=== PATIENT | female | born 1990 | race Caucasian/White ===

== ENCOUNTER → 2017-03-06 16:44 | Outpatient (REF) | payer BC, SELFPAY ==
[2017-03-07 18:37] LABS: Erythrocyte Sedimentation Rate 7 mm/hr (0-20)
[2017-03-08 13:23] LABS: C-Reactive Protein < 0.2 mg/L (0.0-0.9)
[2017-03-09 10:17] LABS: Anti-Jo-1 <0.2 AI (0.0-0.9); Anti-Smith Antibody <0.2 AI (0.0-0.9); Antichromatin Antibodies <0.2 AI (0.0-0.9); Antiscleroderma-70 Antibodies <0.2 AI (0.0-0.9); RNP Antibodies <0.2 AI (0.0-0.9); Sjogren's Anti-SS-A <0.2 AI (0.0-0.9); Sjogren's Anti-SS-B <0.2 AI (0.0-0.9)
[2017-03-09 11:11] LABS: Anti-Centromere B Antibodies <0.2 AI (0.0-0.9); Anti-DNA (DS) Ab Qn <1 IU/mL (0-9)
[2017-03-09 15:16] LABS: PTT-LA 32.9 sec (0.0-51.9); dRVVT 41.1 sec (0.0-47.0)
[2017-03-09 18:12] LABS: Lupus Reflex Interpretation Comment: (.)
== END ==
LOC: LAB 16:44
PROVIDERS: Visit Provider Physician Assistant
DX: I99.9 Unspecified disorder of circulatory system (principal); L97.522 Non-pressure chronic ulcer of other part of left foot with fat layer exposed; L81.9 Disorder of pigmentation, unspecified
CPT/HCPCS: 85613; 85651; 86038; 86140; 86141; 87070; 87077; 87186; 87205

== ENCOUNTER 2017-03-07 15:30 | Outpatient (RCR) | payer BC, SELFPAY | END 2017-03-07 15:31 | disposition home or self-care (01) | LOC: PT 15:30 | PROVIDERS: Family Provider Nurse Practitioner Family; PCP Nurse Practitioner Family; Visit Provider Nurse Practitioner Family | DX: L97.509 Non-pressure chronic ulcer of other part of unspecified foot with unspecified severity (principal) | CPT/HCPCS: 97163; 97597 ==

== ENCOUNTER → 2017-03-07 16:35 | Outpatient (CLI) | payer BC, SELFPAY ==
[2017-03-07 16:55] LABS: Basophils % 0.3 % (0.1-2.0); Eosinophils # 0.1 K/mm3 (0.0-0.4); Eosinophils % 0.6 % (0.1-12.0); Hemoglobin 14.2 g/dL (12.2-16.2); Lymphocytes # 2.8 K/mm3 (0.7-4.5); Lymphocytes % 24.3 K/mm3 (10-50); Mean Corpuscular HGB Conc 33.7 g/dL (31.8-35.4); Mean Corpuscular Hemoglobin 30.5 pg (27.0-31.2); Mean Corpuscular Volume 90.5 fl (81-99); Mean Platelet Volume 7.4 fl (7.4-10.4); Monocytes # 0.3 K/mm3 (0.1-1.0); Neutrophils # 8.2 K/mm3 (1.8-7.8); Neutrophils % 71.8 % (37.0-80.0); Platelet Count 247 K/mm3 (142-424); Red Blood Count 4.64 M/mm3 (4.20-5.40); Red Cell Distribution Width 12.8 % (11.5-17.5); White Blood Count 11.4 K/mm3 (4.8-10.8)
[2017-03-09 11:12] LABS: RA Latex Turbid. <10.0 IU/mL (0.0-13.9)
[2017-03-10 19:21] LABS: Anti-Cyclic Citrullinated Pept 11 units (0-19)
== END ==
PROVIDERS: PCP Physician Assistant; Visit Provider Physician Assistant
DX: I99.9 Unspecified disorder of circulatory system (principal); L97.522 Non-pressure chronic ulcer of other part of left foot with fat layer exposed; L81.9 Disorder of pigmentation, unspecified
CPT/HCPCS: 36415; 85025; 86200; 86431

== ENCOUNTER → 2017-03-19 14:09 | Outpatient (REF) | payer BC, SELFPAY | LOC: LAB 14:09 | PROVIDERS: Visit Provider Physician Assistant | DX: Z22.322 Carrier or suspected carrier of Methicillin resistant Staphylococcus aureus (principal) | CPT/HCPCS: 87070; 87077; 87186; 87205 ==

== ENCOUNTER → 2017-03-26 17:42 | Outpatient (REF) | payer BC, SELFPAY | LOC: LAB 17:42 | PROVIDERS: Visit Provider Podiatrist | DX: L98.499 Non-pressure chronic ulcer of skin of other sites with unspecified severity (principal) | CPT/HCPCS: 87070; 87077; 87186; 87205 ==

== ENCOUNTER → 2017-04-02 09:55 | Outpatient (CLI) | payer BC, SELFPAY ==
--- NOTE | 2017-04-02 10:13 | CT_ITS ---
CT angio abdomen/femoral Ordering Physician: ESPERANZA Marie Patient Age: 26 years: Female HISTORY: Both feet discolored brownish left foot has ulcer medial aspect near heel TECHNIQUE: Following bolus administration of 120 cc of Isovue-370 followed x 100 mL normal saline thin section helical CT scanning performed through the abdomen pelvis and continues inferiorly to the legs ankles and to the feet. CTA reconstruction images performed on radiologist workstation. Thick slab mid images as well as 3-D volume rendering images performed. Next CTA and or CPT.... -77 COMPARISON : FINDINGS abdominal aorta is modest caliber but no significant plaque or stenosis. Renal arteries KERRI SMA all visualized and widely patent. The common iliac arteries are widely patent with no significant stenosis or remarkable plaque. Sore the external and internal iliac arteries bilaterally. Both common femoral arteries and superficial femoral arteries appear satisfactory, widely patent with no remarkable plaque or stenosis.. Similar the popliteal arteries and trifurcation vessels appear satisfactory bilaterally. I would again note that there is a rather modest in caliber of vessels throughout the leg including popliteal artery. There is good runoff at the right leg and left leg with visualization of trifurcation vessels down to the ankle. If anything the contrast is slightly may be very slightly more robust on the right leg to the ankle than left. This is equivocal. There is good filling of the dorsalis pedis artery on right and left.. This continues to the dorsal plantar arch which fills very very slightly more optimally I believe on the right than left The posterior tibial artery small but fills bilaterally continuing medial to the calcaneus. At the RIGHT FOOT we can follow the posterior tibial beneath the calcaneus with good contrast throughout the plantar arch. However on the LEFT foot the course of the left posterior tibial artery becomes less evident just medial to the calcaneus and there is only faint, less evident length of the left plantar arch.. This does not appear to reflect timing of the bolus as there actually is generous venous filling which is already occurred on confirming that there has been adequate filling time on left Other observations. Prominent increased stool the large bowel reflecting constipation.. Early contrast images liver is spleen pancreas adrenals and kidneys otherwise unremarkable. Gallbladder unremarkable. IMPRESSION: ====== . [id number]-[id number] popliteal arteries and trifurcation vessels appear satisfactory with no remarkable plaque or stenosis. There is good runoff to the ankle. Note slender, modest caliber of vessels throughout. However LEFT FOOT Inferior to the medial malleolus the posterior tibial artery seems to be attenuated with less contrast. This becomes more pronounced as a follow it distally with decreased filling at the LEFT PLANTAR ARCH, versus right..
--- NOTE | 2017-04-02 12:34 | HMH.ITSHM ---
SUBOXAN BACTRIM DINDAMYCIN ANTIBIOTIC
== END ==
PROVIDERS: Family Provider Nurse Practitioner Family; PCP Physician Assistant; Visit Provider Physician Assistant
DX: L98.499 Non-pressure chronic ulcer of skin of other sites with unspecified severity (principal)
CPT/HCPCS: 75635; Q9967

== ENCOUNTER → 2017-04-16 16:00 | Outpatient (REF) | payer BC, SELFPAY | LOC: LAB 16:00 | PROVIDERS: Visit Provider Podiatrist | DX: L97.509 Non-pressure chronic ulcer of other part of unspecified foot with unspecified severity (principal) | CPT/HCPCS: 87070; 87106; 87205 ==

== ENCOUNTER 2017-04-20 07:20 | Day surgery (SDC) | payer BC, SELFPAY ==
[2017-04-20] VITALS (21 sets, daily range): BP systolic 111–146; BP diastolic 64–94; PULSE 67–126; RESP 16–20; O2SAT 94–100
--- NOTE | 2017-04-20 | IR_ITS ---
DATE OF CATHETERIZATION:04/20/2017 11:47 AM PROCEDURE: 1. Catheter placement in left superficial femoral artery 2. Left superficial femoral artery angiography with unilateral runoff to the foot INDICATION: 1. Peripheral artery disease 2. Intermittent ischemic left foot Abnormal CTA of the left lower extremity Informed consent was obtained prior to the procedure. COMPLICATIONS: None ESTIMATED BLOOD LOSS: Blood loss less than 10 cc. TECHNIQUE:1% lidocaine used to anesthetize the right groin. The right femoral artery was accessed via the Seldinger technique and a 5 Icelandic sheath was placed in the right femoral artery. A rim catheter was used to cannulate the left common iliac artery and an advantage wire was pushed under fluoroscopic guidance into the left superficial femoral artery. A glide catheter was then advanced into the left superficial femoral artery and unilateral runoff was performed. At the end of the procedure the patient was transferred to the postop holding area in stable condition for sheath removal ANGIOGRAPHIC RESULTS: The left superficial femoral artery is free of disease as is the left popliteal artery. The left posterior tibialis artery is ostially occluded or congenitally absent There is 2 vessel runoff below the knee from the anterior tibialis artery and the peroneal artery. The anterior tibialis artery supplies the dorsalis pedis while the peroneal artery supplies the posterior tibialis artery at the level of the ankle. Both vessels are small caliber with very small vascularity distally Impression: Congenitally absent left posterior tibialis artery Patent two-vessel angiography from the peroneal artery and the anterior tibialis artery which adequately supply the foot however both vessels are small and appear vasculopathic especially very distally in the foot. Plan: 1. Patient must discontinue tobacco products. 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 LDL less than 55 3. Physical therapy and risk factor modification
--- NOTE | 2017-04-20 07:28 | CA_ITS ---
PROCEDURE: 2-D M-mode and color Doppler study INDICATIONS FOR THE TEST: Chest pain COPD Heart Murmur Tobacco Smoking+ Palpitations+ Fatigue Syncope Edema+ Hypertension Diabetes Mellitus Rheumatic Fever SOB IBARRA Obesity Hyperlipidemia Family History HD Additional History pad, marfans disease PATIENT INFORMATION HEIGHT: 69 WEIGHT:135 GENDER: Female B/P:115/65 2-D/M-MODE INTERPRETATION: 2-D MEASUREMENTS OBSERVED VALUES IN CMS Right Ventricular Dimension (RVDd) 1.9 Interventricular Septum (Thickness)(IVsd) 0.8 Left Ventricular Internal Dimensions(LVIDd) 3.8 Left Ventricular Posterior Wall (Thickness)(LVPWd) 0.5 Aortic Root 2.7 Aortic Cusp Separation 1.9 Left Atrial Dimensions (LAD) 3.6 2D 1. Left atrium is normal size, left ventricle is normal size, there is no concentric left ventricular hypertrophy, visually estimated ejection fraction 55% with no obvious regional wall motion abnormality. 2. The right atrium and right ventricle are normal size and contractility. 3. The aortic, mitral and tricuspid valve are structurally normal. 4. The pulmonic valve is poorly visualized. 5. No significant pericardial effusion noted. DOPPLER INTERROGATION: Doppler interrogation of the aortic, mitral and tricuspid valvular presence of mild mitral and tricuspid regurgitation, tricuspid and jet velocity insufficient for calculation of the right ventricular systolic pressure. Diastolic parameters are within normal range. CONCLUSION: 1. Normal left ventricular size, preserved left ventricular systolic function, visually estimated ejection fraction 55% with no obvious regional wall motion abnormality, diastolic parameters are within normal range. 2. Mild mitral and tricuspid regurgitation 3. No significant pericardial effusion noted.
[2017-04-20 08:35] LABS: Basophils % 0.5 % (0.1-2.0); Eosinophils # 0.1 K/mm3 (0.0-0.4); Eosinophils % 2.1 % (0.1-12.0); Hematocrit 44.7 % (37.0-47.0); Hemoglobin 14.6 g/dL (12.2-16.2); Lymphocytes # 2.4 K/mm3 (0.7-4.5); Mean Corpuscular HGB Conc 32.6 g/dL (31.8-35.4); Mean Corpuscular Hemoglobin 30.3 pg (27.0-31.2); Mean Corpuscular Volume 92.9 fl (81-99); Mean Platelet Volume 7.9 fl (7.4-10.4); Monocytes # 0.3 K/mm3 (0.1-1.0); Neutrophils # 3.6 K/mm3 (1.8-7.8); Neutrophils % 56.4 % (37.0-80.0); Platelet Count 228 K/mm3 (142-424); Red Cell Distribution Width 13.3 % (11.5-17.5); White Blood Count 6.5 K/mm3 (4.8-10.8)
[2017-04-20 08:40] LABS: Anion Gap 14.5 mEq/L (5-15); Blood Urea Nitrogen 11 mg/dL (7-18); Carbon Dioxide 26 mmol/L (21.0-32.0); Chloride 103 mmol/L (98-107); Creatinine Clearance Estimated 118 mL/min (0-300); Estimated Glomerular Filt Rate 101 ml/min (>60); GFR (African American) 122 ML/MIN (>60); Glucose 97 mg/dL (74-106); Potassium 3.5 mmoL/L (3.5-5.1); Sodium 140 mmol/L (136-145)
[2017-04-20 11:07] LABS: Urine Pregnancy, HCG Qual. Negative (Negative)
== END 2017-04-20 15:46 | disposition home or self-care (01) ==
LOC: CATHLAB 07:23
PROVIDERS: Family Provider Nurse Practitioner Family; PCP Physician Assistant; Visit Provider Internal Medicine
DX: I73.89 Other specified peripheral vascular diseases (principal); Q27.8 Other specified congenital malformations of peripheral vascular system; Z72.0 Tobacco use; I73.1 Thromboangiitis obliterans [Buerger's disease]; L97.522 Non-pressure chronic ulcer of other part of left foot with fat layer exposed; M76.822 Posterior tibial tendinitis, left leg
CPT/HCPCS: 36247; 75710; 80048; 81025; 85025; 93306; 99152; C1725; C1769; C1894; J1644; Q9966

== ENCOUNTER 2017-04-24 14:48 | Emergency (ER) | payer BC, SELFPAY ==
[2017-04-24 15:14] VITALS: BP 126/98; PULSE 101; RESP 18; TEMP 36.8; O2SAT 98; BMI 21.2
--- NOTE | 2017-04-24 15:29 | PC.NURSE ---
pt aware that due to [facility] guidelines, she can not be seen in [place] for post cath complications, 4 days after heart cath. Discussed transfer to ER. Pt declining transfer wanting only piece of mind that site looks ok. GIGI Guillen in Dr. Petersen's office next door, came to clinic, assessed pt and reassured her that she was ok to wait until her appt on with Dr. Petersen because her site looked typical . She rvwd what to watch for and when to call 911 vs. seek treatment. Pt no longer wishes to be seen by a provider, myself or ER MD.
[2017-04-24 15:35] VITALS: BP 0/0; PULSE 0; RESP 0; TEMP -17.7; TEMP 0; O2SAT 0
== END 2017-04-24 15:36 | disposition left against medical advice (07) ==
PROVIDERS: Emergency Provider Nurse Practitioner Family
DX: Z53.29 Procedure and treatment not carried out because of patient's decision for other reasons (principal)
CPT/HCPCS: 99201

== ENCOUNTER → 2017-04-26 13:33 | Outpatient (REF) | payer BC, SELFPAY | LOC: LAB 13:33 | PROVIDERS: Visit Provider Physician Assistant | DX: L97.509 Non-pressure chronic ulcer of other part of unspecified foot with unspecified severity (principal) | CPT/HCPCS: 87070; 87077; 87186; 87205 ==

== ENCOUNTER → 2017-04-30 14:17 | Outpatient (CLI) | payer BC, SELFPAY ==
--- NOTE | 2017-04-30 14:21 | NVE_ITS ---
Venous Exam Indications: 729.81 Swelling of limb. IMPRESSIONS 1. There is no evidence of significant Reflux. 2. No evidence of deep or superficial vein thrombosis involving the right lower extremity History: Risk factors: Current tobacco use. Right lower extremity venous duplex evaluation. Doppler flow study including spectral analysis, color and lai scale imaging. Location: Vascular laboratory. Patient status: Outpatient. Tables: Venous flow and imaging: + +-------+ + Location Overall Flow properties + +-------+ + Right common femoral Patent Normal phasicity; spontaneous; normal augmentation; compressible + +-------+ + Right saphenofemoral junction Patent Compressible + +-------+ + Right profunda femoral Patent Compressible + +-------+ + Right femoral Patent Normal phasicity; spontaneous; normal augmentation; compressible + +-------+ + Right greater saphenous Patent Normal phasicity; spontaneous; normal augmentation; compressible + +-------+ + Right popliteal Patent Normal phasicity; spontaneous; normal augmentation; compressible + +-------+ + Right posterior tibial Patent Compressible + +-------+ + Right peroneal Patent Compressible + +-------+ + Right gastrocnemius Patent Compressible + +-------+ + Right soleal Patent Compressible + +-------+ + (Report amended ) Electronically signed by: Kasi Hunt [id number]
--- NOTE | 2017-04-30 14:46 | AS_ITS ---
Arterial Exam Indications: Perpiheral arterial disease 443.9. IMPRESSIONS Study suggests arterial insufficiency involving the right posterior tibial artery which is absent according to recent angiogram . There is no evidence of an arterial embolism of right lower extremity Right lower extremity arterial duplex. Duplex scan. Location: Vascular laboratory. Patient status: Outpatient. Tables: Arterial flow: + +---------+---------+ Location V sys V ed + +---------+---------+ Right femoral - proximal -57.4cm/s -37.7cm/s + +---------+---------+ Right femoral - mid 87.2cm/s --------- + +---------+---------+ Right femoral - distal -80.9cm/s --------- + +---------+---------+ Right popliteal - proximal 55.8cm/s --------- + +---------+---------+ Right popliteal - distal 47.1cm/s --------- + +---------+---------+ Right posterior tibial - mid 68.4cm/s --------- + +---------+---------+ Right posterior tibial - distal 61.3cm/s --------- + +---------+---------+ [place] and Stress table: +--------+ Stage +--------+ Baseline +--------+ (Report amended ) Electronically signed by: Kasi Hunt [id number]
== END ==
PROVIDERS: PCP Physician Assistant; Visit Provider Internal Medicine
DX: L81.9 Disorder of pigmentation, unspecified (principal); I99.9 Unspecified disorder of circulatory system; L97.522 Non-pressure chronic ulcer of other part of left foot with fat layer exposed; M79.661 Pain in right lower leg; Q87.40 Marfan syndrome, unspecified; F17.200 Nicotine dependence, unspecified, uncomplicated; R00.2 Palpitations; I73.1 Thromboangiitis obliterans [Buerger's disease]
CPT/HCPCS: 93926; 93971

== ENCOUNTER → 2017-05-07 15:03 | Outpatient (POV) | payer BC, SELFPAY | PROVIDERS: Visit Provider Nurse Practitioner Acute Care | DX: Z00.00 Encounter for general adult medical examination without abnormal findings (principal) ==

== ENCOUNTER 2017-05-10 09:08 | Emergency (ER) | payer BC, SELFPAY ==
[2017-05-10 09:23] VITALS: BP 136/82; PULSE 90; RESP 18; TEMP 36.9; O2SAT 100; BMI 19.8
--- NOTE | 2017-05-10 09:58 | XR_ITS ---
XR acute abdomen series COMPARISON: Acute abdominal series 07/30/2013 HISTORY: Abdominal fullness, suspect constipation TECHNIQUE: PA chest KUB and upright abdomen FINDINGS: The lung lai are well expanded and appear clear of infiltrate. The cardiac silhouette and vascularity are normal and is no pleural fluid. Abdominal films show large amount stool throughout the colon. There are few mildly dilated loops of small bowel in the midabdomen. There is no free air. There are no suspicious calcifications. Again noted is mild levoscoliotic curvature of the lower lumbar spine. There is a linear metallic object likely umbilical jewelry seen. IMPRESSION: Negative chest, findings consistent with moderate constipation
--- NOTE | 2017-05-10 10:52 | HMH.EDUTC ---
[facility] [place] Disposition Clinical Impression: Constipation Qualifiers: Constipation type: drug induced constipation Qualified Code(s): K59.03 - Drug induced constipation Disposition: Home, Self-Care Condition on Discharge: Good Instructions: DI for Constipation Additional Instructions: As discussed, drink plenty of water consistent with AT LEAST 67 fluid ounces of water a day. You may take a supplement of fiber and Miralax to induce bowel movement. Follow-up with PCP if no improvement. Go to ED/UTC if symptoms worsen or fever develops with extreme abdominal pain. Referrals: Provider,Referral, [Primary Care Provider] - Time of Disposition: 11:04 Medical Decision Making - [place] Inquiry Pt receiving controlled substance: No Vital Signs: 05/10/17 09:23 Temperature 98.4 F Temperature Source Temporal Artery Scan Pulse Rate [Brachial] 90 Respiratory Rate 18 Blood Pressure [Right Arm] 136/82 Blood Pressure Mean [Right Arm] 100 Blood Pressure Position [Right Arm] Sitting 02 Sat by Pulse Oximetry 100 Oxygen Delivery Method Room Air Orders (Tests/Meds): ORDERS Category Date Time Status Abdomen XR flat & upright [XR acute abdomen series] Exams 05/10/17 09:58 Ordered Stat - Radiology Data #1 Image(s): Abdomen Image Reviewed: Yes I reviewed the patient's radiology image Constipation. No suggestion of obstruction. [facility] [place] HPI - General Stated complaint: Stomach cramping Time Seen by Provider: 05/10/17 10:10 Mode of Arrival: Ambulatory Source of Information: Patient Limitations: No Limitations Description of Symptoms (Recalled from Triage Doc. by RN): PT STATES SHE HAS CHRONIC STOMACH ISSUES AND WAS STARTED ON LAZEST 3 DAYS AGO BUT HAS NOT HELPED WITH CONSTIPATION. CONCERNED SHE HAS A BLOCKAGE. HEENT Symptoms (Recalled from RN notes): No Resp Symptoms (Recalled from RN notes): No Skin Symptoms (Recalled from RN notes): No MS Symptoms (Recalled from RN notes): No Functional Status (Recalled from RN notes): NA - History of Present Illness Provider Complaint: Patient presents with constipation and diffuse abdominal pain. She reports seeing a gastroenterology [employer] D[employer]AL MEDICINE who prescribed her Linzess for constipation. She has taken three days of Linzess and has had increased abdominal cramping radiating to her back without having a bowel movement. She is concerned she might have a bowel blockage. She denies fevers, nausea, dysuria, and vomiting. - Related Data Home Medications Medication Instructions Recorded Confirmed buprenorphine 8 mg-naloxone 2 mg 10 mg SUBLINGUAL QDAY mg 02/21/17 04/24/17 sublingual film ibuprofen 200 mg tablet 200 mg PO Q4-6H PRN 04/10/17 04/24/17 aspirin 81 mg tablet,delayed 81 mg PO DAILY tab 04/30/17 release fluconazole 150 mg tablet PO 2 Days #2 05/03/17 Previous Rx's Medication Instructions Recorded sulfamethoxazole 800 1 tab PO BID #28 tab 04/30/17 mg-trimethoprim 160 mg tablet Allergies Allergy/AdvReac Type Severity Reaction Status Date / Time Iodinated Contrast Media - Allergy Intermediate NA-NAUSEA/V Verified 05/03/17 11:49 Oral and OMITING [IODINATED CONTRAST MEDIA - IV DYE] levofloxacin [From LEVAQUIN] Allergy Mild Verified 05/03/17 11:49 ondansetron Allergy Unknown Verified 05/03/17 11:49 [From ZOFRAN ( HYDROCHLORIDE)] - Worker's Comp Is this a Worker's Comp case?: No [facility] History I have reviewed the patient's past medical history: Yes Medical History: Reports:: MRSA Denies:: Anxiety, Asthma, Cancer, Chronic Obstructive Pulmonary Disease (COPD), Depression, Diabetes Mellitus Type 1, Diabetes Mellitus Type 2, Gastroesophageal Reflux Disease(GERD), Hyperlipidemia, Hypertension, Kidney Stones, Seizures Other Medical History: Reports: Sinus Problems. Denies: Hypothyroidism, Thyroid Disease Comment: Shingles Other Surgeries: Yes: No Previous Surgery, Cardiac Catheterization, Hernia Repair Amputation: No
--- NOTE | 2017-05-10 10:55 | ED_ITS ---
[facility] [place] Clinical Impression: Constipation Qualifiers: Constipation type: drug induced constipation Qualified Code(s): K59.03 - Drug induced constipation Disposition: Home, Self-Care Condition on Discharge: Good Instructions: DI for Constipation Additional Instructions: As discussed, drink plenty of water consistent with AT LEAST 67 fluid ounces of water a day. You may take a supplement of fiber and Miralax to induce bowel movement. Follow-up with PCP if no improvement. Go to ED/UTC if symptoms worsen or fever develops with extreme abdominal pain. Referrals: Provider,Referral, [Primary Care Provider] - Time of Disposition: 11:04 Medical Decision Making - [place] Inquiry Pt receiving controlled substance: No Vital Signs: 05/10/17 09:23 Temperature 98.4 F Temperature Source Temporal Artery Scan Pulse Rate [Brachial] 90 Respiratory Rate 18 Blood Pressure [Right Arm] 136/82 Blood Pressure Mean [Right Arm] 100 Blood Pressure Position [Right Arm] Sitting 02 Sat by Pulse Oximetry 100 Oxygen Delivery Method Room Air Orders (Tests/Meds): ORDERS Category Date Time Status Abdomen XR flat & upright [XR acute abdomen series] Exams 05/10/17 09:58 Ordered Stat - Radiology Data #1 Image(s): Abdomen Image Reviewed: Yes I reviewed the patient's radiology image Constipation. No suggestion of obstruction. [facility] [place] - General Stated complaint: Stomach cramping Time Seen by Provider: 05/10/17 10:10 Mode of Arrival: Ambulatory Source of Information: Patient Limitations: No Limitations Description of Symptoms (Recalled from Triage Doc. by RN): PT STATES SHE HAS CHRONIC STOMACH ISSUES AND WAS STARTED ON LAZEST 3 DAYS AGO BUT HAS NOT HELPED WITH CONSTIPATION. CONCERNED SHE HAS A BLOCKAGE. HEENT Symptoms (Recalled from RN notes): No Resp Symptoms (Recalled from RN notes): No Skin Symptoms (Recalled from RN notes): No MS Symptoms (Recalled from RN notes): No Functional Status (Recalled from RN notes): NA - History of Present Illness Provider Complaint: Patient presents with constipation and diffuse abdominal pain. She reports seeing a gastroenterology [employer] who prescribed her Linzess for constipation. She has taken three days of Linzess and has had increased abdominal cramping radiating to her back without having a bowel movement. She is concerned she might have a bowel blockage. She denies fevers, nausea, dysuria , and vomiting. - Related Data Home Medications Medication Instructions Recorded Confirmed buprenorphine 8 mg-naloxone 2 mg 10 mg SUBLINGUAL QDAY mg 02/21/17 04/24/17 sublingual film ibuprofen 200 mg tablet 200 mg PO Q4-6H PRN 04/10/17 04/24/17 aspirin 81 mg tablet,delayed 81 mg PO DAILY tab 04/30/17 release fluconazole 150 mg tablet PO 2 Days #2 05/03/17 Previous Rx's Medication Instructions Recorded sulfamethoxazole 800 1 tab PO BID #28 tab 04/30/17 mg-trimethoprim 160 mg tablet Allergies Allergy/AdvReac Type Severity Reaction Status Date / Time Iodinated Contrast Media - Allergy Intermediate NA-NAUSEA/V Verified 05/03/17 11 :49 Oral and OMITING [IODINATED CONTRAST MEDIA - IV DYE] levofloxacin [From LEVAQUIN] Allergy Mild Verified 05/03/17 11:49 o
[2017-05-10 11:07] VITALS: BP 136/82; PULSE 90; RESP 18; TEMP 36.9; O2SAT 100
== END 2017-05-10 11:10 | disposition home or self-care (01) ==
PROVIDERS: Emergency Provider Physician Assistant; Family Provider Nurse Practitioner Family
DX: K59.03 Drug induced constipation (principal); F17.210 Nicotine dependence, cigarettes, uncomplicated; Z88.8 Allergy status to other drugs, medicaments and biological substances; Z79.82 Long term (current) use of aspirin
CPT/HCPCS: 74021; 99201

== ENCOUNTER → 2017-05-14 07:05 | Outpatient (CLI) | payer BC, SELFPAY ==
[2017-05-14 07:21] LABS: Basophils % 0.6 % (0.1-2.0); Eosinophils # 0.1 K/mm3 (0.0-0.4); Hematocrit 41.4 % (37.0-47.0); Hemoglobin 13.7 g/dL (12.2-16.2); Lymphocytes # 3.2 K/mm3 (0.7-4.5); Lymphocytes % 53.3 K/mm3 (10-50); Mean Corpuscular Hemoglobin 30.8 pg (27.0-31.2); Mean Corpuscular Volume 93.3 fl (81-99); Mean Platelet Volume 8.5 fl (7.4-10.4); Monocytes # 0.2 K/mm3 (0.1-1.0); Monocytes % 3.9 % (1.7-9.3); Neutrophils # 2.4 K/mm3 (1.8-7.8); Neutrophils % 40.2 % (37.0-80.0); Platelet Count 213 K/mm3 (142-424); Red Blood Count 4.44 M/mm3 (4.20-5.40); Red Cell Distribution Width 12.7 % (11.5-17.5); White Blood Count 6.1 K/mm3 (4.8-10.8)
[2017-05-14 07:24] LABS: MANUAL DIFFERENTIAL MANUAL DIFFERENTIAL (MANUAL DIFF)
[2017-05-14 07:41] LABS: Alanine Aminotransferase 20 U/L (12-78); Alkaline Phosphatase 63 U/L (46-116); Anion Gap 13.7 mEq/L (5-15); Aspartate Amino Transferase 22 U/L (15-37); Bilirubin,Total 0.2 mg/dL (0.2-1.0); Blood Urea Nitrogen 7 mg/dL (7-18); Carbon Dioxide 27 mmol/L (21.0-32.0); Chloride 103 mmol/L (98-107); Chol/HDL Ratio 4.7 (1-3.5); Cholesterol 132 mg/dL (140-200); Creatinine,Serum 0.91 mg/dL (0.55-1.02); Estimated Glomerular Filt Rate 74 ml/min (>60); GFR (African American) 90 ML/MIN (>60); Glucose 92 mg/dL (74-106); HDL Cholesterol 28 mg/dL (29-89); LDL Cholesterol 87 mg/dL (0-130); Potassium 3.7 mmoL/L (3.5-5.1); Sodium 140 mmol/L (136-145); Total Protein,Serum 7.4 gm/dL (6.4-8.2); Triglycerides 85 mg/dL (30-200); VLDL Cholesterol 17 mg/dL (0-40)
[2017-05-14 07:43] LABS: Bilirubin,Direct < 0.1 mg/dL (0.0-0.2)
[2017-05-14 07:48] LABS: Lymphocytes % 57 % (10-50); Monocytes % 7 % (2-9); Neutrophils % 32 % (42-76); Platelet Estimate Normal; RBC Morphology Normal; Total Cells Counted 100
[2017-05-14 08:15] LABS: Erythrocyte Sedimentation Rate 10 mm/hr (0-20)
== END ==
PROVIDERS: Visit Provider Internal Medicine
DX: Q87.40 Marfan syndrome, unspecified (principal); I77.6 Arteritis, unspecified; I73.1 Thromboangiitis obliterans [Buerger's disease]; L97.522 Non-pressure chronic ulcer of other part of left foot with fat layer exposed; I73.9 Peripheral vascular disease, unspecified; R00.0 Tachycardia, unspecified; I99.9 Unspecified disorder of circulatory system; R93.5 Abnormal findings on diagnostic imaging of other abdominal regions, including retroperitoneum; L81.9 Disorder of pigmentation, unspecified; F17.200 Nicotine dependence, unspecified, uncomplicated; R00.2 Palpitations
CPT/HCPCS: 36415; 80048; 80061; 80076; 85007; 85025; 85651; 86141

== ENCOUNTER → 2017-05-22 09:46 | Outpatient (REF) | payer BC, SELFPAY | LOC: LAB 09:46 | PROVIDERS: Visit Provider Physician Assistant | DX: S91.002A Unspecified open wound, left ankle, initial encounter (principal) | CPT/HCPCS: 87070; 87077; 87186; 87205 ==

== ENCOUNTER → 2017-05-31 13:51 | Outpatient (CLI) | payer BC, SELFPAY ==
--- NOTE | 2017-05-31 13:51 | MR_ITS ---
MR foot LT wo/w con CLINICAL INDICATION: Nonhealing wound of the left foot, pes planus ITS.REASON: Non healing ulcer, posterior tibial tendon dysfunction with pes planus. PTTD, ulcer medial side of left foot and ankle, foot pain, joint pain ORDERING PHYSICIAN: Katlin Medina DPM PATIENT AGE: 27 years COMPARISON: 05/01/2016 TECHNIQUE: Routine multiplanar multiecho sequences are performed without and with contrast FINDINGS: The tibialis posterior tendon is thinned but does not appear torn with insertion distally upon the navicular and medial cuneiform. There is moderate pes planus with slight increased T2 signal of the anterior aspect of the calcaneus as well as the talus. There is moderate pes planus with inferior angulation of the distal aspect of the navicular. No abnormal bone marrow enhancement that would suggest osteomyelitis. The fibers of the deltoid ligament are thinned but do not appear torn. There is valgus angulation of the calcaneus. There is hallux valgus with increased T2 signal of the distal aspect of the first metatarsal. This is nonspecific and could be inflammatory or infectious. IMPRESSION: 1. Pes planus. No evidence of posterior tibialis tendon tear 2. Mild bone marrow edema of the talus and the anterior aspect of the calcaneus. Etiology indeterminate. 3. No evidence of osteomyelitis of the ankle. 4. Focal increased T2 signal with questionable small amount of enhancement at the distal first metatarsal medially nonspecific with hallux valgus. This could be a result of the hallux valgus with osteoarthritic change. Infection cannot be excluded based on these images..
== END ==
PROVIDERS: Family Provider Nurse Practitioner Family; PCP Physician Assistant; Visit Provider Podiatrist
DX: M76.822 Posterior tibial tendinitis, left leg (principal); Z51.89 Encounter for other specified aftercare
CPT/HCPCS: 73720; A9576

== ENCOUNTER → 2017-06-01 14:51 | Outpatient (REF) | payer BC, SELFPAY | LOC: LAB 14:51 | PROVIDERS: Visit Provider Podiatrist | DX: L97.322 Non-pressure chronic ulcer of left ankle with fat layer exposed (principal) | CPT/HCPCS: 87070; 87205 ==

== ENCOUNTER → 2017-06-19 07:07 | Outpatient (CLI) | payer BC, SELFPAY ==
--- NOTE | 2017-06-19 07:08 | NM_ITS ---
NM IN-111 wbc scan Ordering Physician: Katlin Medina DPM Patient Age: 27 years: Female HISTORY: ITS.REASON: osteomyelitis vs. avascular necrosis medial left ankle Abnormal signal at the medial talus on recent MR TECHNIQUE: Indium the WBC labeled scan 06/19/2017 with imaging at 4 hours, 24 hours, and 48 hours following injection. Also Repeat Tc WBC labeled scan repeated on July 09, (2 hour delayed imaging July 09 & 24-hour delayed imaging on July 10.) COMPARISON : MRI left foot 05/31/2017.... Plain films left foot 05/01/2016 FINDINGS Recent MRI showed increased bone signal at medial aspect of slight medially directed distal talus as well increased bone signal at the distal calcaneus, about the angle Gissane. It was unclear on MR if if we reviewing reactive bone changes versus AVN versus osteomyelitis on that prior MR and thus and thus the WBC labeled scans performed to evaluate for infection. The patient initially received WBC labeled indium scan performed 06/19/2017 with imaging performed at 4 hours, 24 hours, and 48 hours following injection.. With the repeatTc WBC labeled scan repeated on July 09, (with imaging at 2 hr & 24 hour). On initial Indium WBC study there is some initial mislabeling of images by technologist. However after lengthy discussion with this technologist JGthe final images which are now in PACS I have been corrected, & findings concur with today's repeat Tc WBC labeled images. On the both the 2 studies(indium and Tc labeled WBC) we see a minimal slight increased activity proximal left foot, medial slightly more so than lateral. These areas of increased activity corresponding with areas of increased bone signal recent prior MR. Specifically the most notable of minimal, increased activity is at medial proximal foot towards ankle, compared to the right foot. This is most notable the region medially directed distal talus which is a area of increased signal on recent bone scan... I'm surprised activity is not greater more intense and more focal to better confirm osteomyelitis but could reflect chronic low-grade nature of such. The subtle increased medial activity also noted to extend slightly distal along medial proximal foot on posterior view particularly on theonTC WBC scan. There is also slight subtle increased activity seen at the lateral foot left versus right, which likely corresponds with increased activity about the lateral subtalar joint region (prior MR showed increased bone signal both sides of the angle of gissane here at the lateral foot,)). . Right foot appears WNL. With this there is Less, & possibly subtle relative diminished activity at the proximal right foot & ankle in these same regions noted above This Study was initially monitored & reviewed by Dr. Hunt and we have discussed this case with him as well.. IMPRESSION 1. Minimal increased activity at the proximal left foot versus right foot.. Medial> lateral Specifically most notable minimal area increased activity does seem to correlate with the medially aspect of the medially directed distal talus., Here at the medial proximal foot. There is also subtle vague regional activity at lateral subtalar joint which correlates with increased MR signal about the angle of Gissne. (These minimal findings are evident on both the initial indium-111 study with correct labeling; as well as the repeat Tc WBC labeled scan)
== END ==
PROVIDERS: Family Provider Nurse Practitioner Family; PCP Physician Assistant; Visit Provider Podiatrist
DX: L97.522 Non-pressure chronic ulcer of other part of left foot with fat layer exposed (principal)
CPT/HCPCS: 78806

== ENCOUNTER → 2017-06-20 12:16 | Outpatient (CLI) | payer BC, SELFPAY | PROVIDERS: PCP Physician Assistant; Visit Provider Podiatrist | DX: L97.522 Non-pressure chronic ulcer of other part of left foot with fat layer exposed (principal) ==

== ENCOUNTER → 2017-06-21 11:30 | Outpatient (CLI) | payer BC, SELFPAY | PROVIDERS: PCP Physician Assistant; Visit Provider Podiatrist | DX: L97.522 Non-pressure chronic ulcer of other part of left foot with fat layer exposed (principal) ==

== ENCOUNTER → 2017-06-26 15:06 | Outpatient (CLI) | payer BC, SELFPAY ==
[2017-06-26 15:27] LABS: Basophils % 0.3 % (0.1-2.0); Eosinophils # 0.1 K/mm3 (0.0-0.4); Eosinophils % 1.2 % (0.1-12.0); Hematocrit 37.8 % (37.0-47.0); Hemoglobin 12.8 g/dL (12.2-16.2); Mean Corpuscular HGB Conc 33.9 g/dL (31.8-35.4); Mean Corpuscular Hemoglobin 30.5 pg (27.0-31.2); Mean Corpuscular Volume 90.1 fl (81-99); Mean Platelet Volume 8.8 fl (7.4-10.4); Monocytes # 0.2 K/mm3 (0.1-1.0); Monocytes % 3.3 % (1.7-9.3); Neutrophils # 3.9 K/mm3 (1.8-7.8); Neutrophils % 54.1 % (37.0-80.0); Platelet Count 209 K/mm3 (142-424); Red Cell Distribution Width 12.3 % (11.5-17.5); White Blood Count 7.3 K/mm3 (4.8-10.8)
[2017-06-26 16:17] LABS: Erythrocyte Sedimentation Rate 8 mm/hr (0-20)
[2017-06-26 17:37] LABS: Alanine Aminotransferase 17 U/L (12-78); Albumin Level 4.5 gm/dL (3.4-5.0); Albumin/Globulin Ratio 1.7 (1.1-1.8); Alkaline Phosphatase 47 U/L (46-116); Anion Gap 15.6 mEq/L (5-15); Aspartate Amino Transferase 17 U/L (15-37); Bilirubin,Total 0.5 mg/dL (0.2-1.0); Blood Urea Nitrogen 12 mg/dL (7-18); Calcium 9.6 mg/dL (8.5-10.1); Carbon Dioxide 25 mmol/L (21.0-32.0); Chloride 103 mmol/L (98-107); Estimated Glomerular Filt Rate 120 ml/min (>60); GFR (African American) 145 ML/MIN (>60); Globulin 2.7 gm/dl (1.3-3.2); Glucose 100 mg/dL (74-106); Potassium 3.6 mmoL/L (3.5-5.1); Sodium 140 mmol/L (136-145); Total Protein,Serum 7.2 gm/dL (6.4-8.2)
[2017-06-26 17:38] LABS: C-Reactive Protein < 0.2 mg/L (0.0-0.9)
[2017-06-28 21:15] LABS: Vitamin D 25 Hydroxy 56.6 ng/mL (30.0-100.0)
== END ==
PROVIDERS: Visit Provider Podiatrist
DX: L97.322 Non-pressure chronic ulcer of left ankle with fat layer exposed (principal)
CPT/HCPCS: 36415; 80053; 80323; 82652; 85025; 85651; 86140; G0480

== ENCOUNTER → 2017-07-05 07:02 | Outpatient (CLI) | payer BC, SELFPAY | PROVIDERS: Family Provider Nurse Practitioner Family; PCP Physician Assistant; Visit Provider Podiatrist | DX: L97.509 Non-pressure chronic ulcer of other part of unspecified foot with unspecified severity (principal) ==

== ENCOUNTER → 2017-07-09 07:07 | Outpatient (CLI) | payer BC, SELFPAY | PROVIDERS: Family Provider Nurse Practitioner Family; PCP Physician Assistant; Visit Provider Podiatrist | DX: M79.672 Pain in left foot (principal); M86.172 Other acute osteomyelitis, left ankle and foot ==

== ENCOUNTER → 2017-07-10 13:33 | Outpatient (CLI) | payer BC, SELFPAY | PROVIDERS: PCP Physician Assistant; Visit Provider Podiatrist | DX: M86.9 Osteomyelitis, unspecified (principal); M79.672 Pain in left foot; L97.522 Non-pressure chronic ulcer of other part of left foot with fat layer exposed; I73.1 Thromboangiitis obliterans [Buerger's disease]; F17.200 Nicotine dependence, unspecified, uncomplicated ==

== ENCOUNTER → 2017-07-23 14:20 | Outpatient (POV) | payer BC, SELFPAY | PROVIDERS: Visit Provider Nurse Practitioner Acute Care | DX: Z00.00 Encounter for general adult medical examination without abnormal findings (principal) ==

== ENCOUNTER → 2017-09-27 14:46 | Outpatient (CLI) | payer MEDICARE, BC, SELFPAY ==
[2017-09-27 15:14] LABS: Microscopic, Urine URINE MICROSCOPIC (MICROSCOPIC)
[2017-09-27 15:44] LABS: Creatinine,Urine Random 260 mg/dL (20-320); Total Protein,Urine Random 27.4 mg/dL (0.0-11.9)
[2017-09-27 15:52] LABS: Appearance,Urine CLEAR (Clear); Bilirubin,Urine Negative (Negative); Blood, Urine Negative (Negative); Color,Urine YELLOW (Yellow); Glucose,Urine (UA) Negative (Negative); Ketones,Urine Negative (Negative); Leukocyte Esterase,Urine Negative (Negative); Nitrate,Urine Negative (Negative); PH,Urine 5.5 (5.0-8.5); Protein,Urine Negative (Negative); Specific Gravity, Urine >= 1.030 (1.005-1.030); Urobilinogen,Urine 0.2 EU/dl (0.2)
[2017-09-27 16:12] LABS: Bacteria,Urine 1+ /lpf; Squamous Epithelial Cell,Urine 20-50 #/hpf (0-5)
[2017-09-27 16:18] LABS: Basophils % 0.3 % (0.1-2.0); Eosinophils # 0.4 K/mm3 (0.0-0.4); Eosinophils % 4.4 % (0.1-12.0); Hemoglobin 13.6 g/dL (12.2-16.2); Lymphocytes # 2.9 K/mm3 (0.7-4.5); Lymphocytes % 36.5 K/mm3 (10-50); Mean Corpuscular HGB Conc 33.1 g/dL (31.8-35.4); Mean Corpuscular Hemoglobin 30.3 pg (27.0-31.2); Mean Corpuscular Volume 91.7 fl (81-99); Mean Platelet Volume 8.3 fl (7.4-10.4); Monocytes # 0.4 K/mm3 (0.1-1.0); Monocytes % 4.4 % (1.7-9.3); Neutrophils # 4.3 K/mm3 (1.8-7.8); Neutrophils % 54.4 % (37.0-80.0); Platelet Count 202 K/mm3 (142-424); Red Blood Count 4.48 M/mm3 (4.20-5.40); Red Cell Distribution Width 12.3 % (11.5-17.5); White Blood Count 7.9 K/mm3 (4.8-10.8)
[2017-09-27 16:53] LABS: Alanine Aminotransferase 20 U/L (12-78); Albumin Level 4.6 gm/dL (3.4-5.0); Albumin/Globulin Ratio 1.7 (1.1-1.8); Alkaline Phosphatase 54 U/L (46-116); Anion Gap 11.5 mEq/L (5-15); Aspartate Amino Transferase 17 U/L (15-37); Bilirubin,Total 0.5 mg/dL (0.2-1.0); Blood Urea Nitrogen 13 mg/dL (7-18); Calcium 9.1 mg/dL (8.5-10.1); Carbon Dioxide 28 mmol/L (21.0-32.0); Chloride 103 mmol/L (98-107); Creatine Kinase 107 U/L (26-192); Estimated Glomerular Filt Rate 100 ml/min (>60); GFR (African American) 121 ML/MIN (>60); Globulin 2.7 gm/dl (1.3-3.2); Glucose 85 mg/dL (74-106); Potassium 3.5 mmoL/L (3.5-5.1); Sodium 139 mmol/L (136-145); Total Protein,Serum 7.3 gm/dL (6.4-8.2)
[2017-09-27 16:57] LABS: C-Reactive Protein < 0.2 mg/L (0.0-0.9)
[2017-09-27 17:08] LABS: Erythrocyte Sedimentation Rate 6 mm/hr (0-20)
[2017-09-29 08:19] LABS: Complement C3 126 mg/dL (82-167); Immunoglobulin A, Qn 123 mg/dL (87-352); Immunoglobulin G, Qn 786 mg/dL (700-1600); Immunoglobulin M, Qn 45 mg/dL (26-217); RA Latex Turbid. <10.0 IU/mL (0.0-13.9)
[2017-09-29 10:12] LABS: Hep A Ab, IgM Negative (Negative); Hepatitis B Core Antibody IgM Negative (Negative); Hepatitis B Surface Antigen Negative (Negative)
[2017-09-30 16:09] LABS: PTT-LA 37.9 sec (0.0-51.9)
[2017-10-01 12:54] LABS: HIV Screen 4th Generation wRfx Non Reactive (Non Reactive); Hepatitis C Antibody <0.1 s/co ratio (0.0-0.9); Rapid Plasma Reagin Ab Titer Non Reactive (NonRea<1:1)
[2017-10-01 12:56] LABS: Lupus Reflex Interpretation Comment: (.)
[2017-10-01 12:57] LABS: Antinuclear Antibodies, IFA Negative (.)
[2017-10-01 15:19] LABS: Antiscleroderma-70 Antibodies <0.2 AI (0.0-0.9); Cytoplasmic (C-ANCA) <1:20 titer (Neg:<1:20); RNP Antibodies <0.2 AI (0.0-0.9); Sjogren's Anti-SS-A <0.2 AI (0.0-0.9); Sjogren's Anti-SS-B <0.2 AI (0.0-0.9)
[2017-10-01 16:18] LABS: Albumin 4.7 g/dL (2.9-4.4); Alpha-1-Globulin 0.3 g/dL (0.0-0.4); Alpha-2-Globulin 0.7 g/dL (0.4-1.0); Angiotensin Converting Enzyme 41 U/L (14-82); Gamma Globulin 0.7 g/dL (0.4-1.8); Protein, Total 7.3 g/dL (6.0-8.5)
[2017-10-02 15:37] LABS: Albumin, U 26.6 % (.); Alpha-1-Globulin, U 2.6 % (.); Alpha-2-Globulin, U 19.8 % (.); Beta Globulin, U 35.9 % (.); Gamma Globulin, U 15.1 % (.); M-Spike, % Not Observed % (Not Observed); Protein,Total,Urine 29.4 mg/dL (Not Estab.)
[2017-10-03 08:44] LABS: Aldolase 3.7 U/L (3.3-10.3); Anti-Cardio Antibody IgM <9 MPL U/mL (0-12); Anti-Cardiolipin Antibody IgG <9 GPL U/mL (0-14); Anti-Cyclic Citrullinated Pept 11 units (0-19); Anti-DNA (DS) Ab Qn <1 IU/mL (0-9); Anti-Jo-1 <0.2 AI (0.0-0.9); Anticardiolipin Ab,IgA,Qn <9 APL U/mL (0-11); Perinuclear (P-ANCA) <1:20 titer (Neg:<1:20)
[2017-10-03 14:48] LABS: Beta-2 Glycoprotein I Ab, IgA <9 (0-25); Beta-2 Glycoprotein I Ab, IgG <9 (0-20); Beta-2 Glycoprotein I Ab, IgM <9 (0-32)
== END ==
PROVIDERS: PCP Physician Assistant; Visit Provider Internal Medicine
DX: I99.9 Unspecified disorder of circulatory system (principal); Z11.4 Encounter for screening for human immunodeficiency virus [HIV]
CPT/HCPCS: 36415; 80053; 80074; 81001; 82085; 82164; 82550; 82570; 82652; 82784; 83520; 84155; 84156; 84165; 84166; 85025; 85613; 85651; 86038; 86140; 86146; 86147; 86161; 86200; 86225; 86235; 86256; 86431; 86480; 86592; 86703; G0432

== ENCOUNTER → 2017-10-26 14:57 | Outpatient (CLI) | payer BC, SELFPAY | PROVIDERS: Family Provider Nurse Practitioner Family; PCP Physician Assistant; Visit Provider Internal Medicine | DX: L97.309 Non-pressure chronic ulcer of unspecified ankle with unspecified severity (principal); I99.9 Unspecified disorder of circulatory system ==

== ENCOUNTER → 2017-11-06 16:03 | Outpatient (CLI) | payer MEDICARE, BC, SELFPAY ==
--- NOTE | 2017-11-06 16:04 | XR_ITS ---
XR foot RT min 3V HISTORY: ITS.REASON: right foot pain ORDERING PHYSICIAN: Jaime Brewer MD PATIENT AGE: 27 years COMPARISON: None FINDINGS: There is minimal hallux valgus No fracture or dislocation. No lytic or blastic change. There is normal mineralization.. The joint spaces are well-preserved. No significant degenerative/arthritic changes. No erosive changes evident. IMPRESSION: Minimal hallux valgus otherwise negative right foot
== END ==
PROVIDERS: PCP Nurse Practitioner Family; Visit Provider Orthopaedic Surgery
DX: M79.671 Pain in right foot (principal)
CPT/HCPCS: 73630

== ENCOUNTER → 2017-12-18 15:13 | Outpatient (CLI) | payer MEDICARE, BC, SELFPAY ==
--- NOTE | 2017-12-18 15:16 | NVE_ITS ---
Venous Exam Indications: 729.5 Pain in limb. IMPRESSIONS 1. There is no evidence of significant Reflux. 2. No evidence of deep or superficial vein thrombosis involving the left lower extremity Difficult exam vessels very smallmaking it difficult to image Left lower extremity venous duplex evaluation. Doppler flow study including spectral analysis, color and lai scale imaging. Location: Vascular laboratory. Patient status: Outpatient. CRITICAL FINDINGS - Reported to: Kellen Cunha - Read back and verified. - 12/18/16 - 1540 - None Tables: Venous flow and imaging: + +-------+ + Location Overall Flow properties + +-------+ + Left common femoral Patent Normal phasicity; spontaneous; normal augmentation; compressible + +-------+ + Left saphenofemoral junction Patent Compressible + +-------+ + Left profunda femoral Patent Compressible + +-------+ + Left femoral Patent Normal phasicity; spontaneous; normal augmentation; compressible + +-------+ + Left greater saphenous Patent Normal phasicity; spontaneous; normal augmentation; compressible + +-------+ + Left popliteal Patent Normal phasicity; spontaneous; normal augmentation; compressible + +-------+ + Left posterior tibial Patent Compressible + +-------+ + Left peroneal Patent Compressible + +-------+ + Left gastrocnemius Patent Compressible + +-------+ + Left soleal Patent Compressible + +-------+ + (Report amended ) Electronically signed by: Kasi Hunt [id number]
== END ==
PROVIDERS: PCP Nurse Practitioner Family; Visit Provider Nurse Practitioner Family
DX: M79.605 Pain in left leg (principal)
CPT/HCPCS: 93971

== ENCOUNTER → 2018-06-12 14:14 | Outpatient (CLI) | payer MEDICARE, MEDICAID, SELFPAY ==
[2018-06-12 15:26] LABS: Basophils % 0.3 % (0.1-2.0); Eosinophils # 0.1 K/mm3 (0.0-0.4); Eosinophils % 1.5 % (0.1-12.0); Hematocrit 40.2 % (37.0-47.0); Hemoglobin 13.4 g/dL (12.2-16.2); Lymphocytes # 3.2 K/mm3 (0.7-4.5); Lymphocytes % 39.8 % (10-50); Mean Corpuscular HGB Conc 33.3 g/dL (31.8-35.4); Mean Corpuscular Hemoglobin 30.4 pg (27.0-31.2); Mean Corpuscular Volume 91.4 fl (81-99); Mean Platelet Volume 7.9 fl (7.4-10.4); Monocytes # 0.3 K/mm3 (0.1-1.0); Monocytes % 4.1 % (1.7-9.3); Neutrophils # 4.3 K/mm3 (1.8-7.8); Neutrophils % 54.3 % (37.0-80.0); Platelet Count 219 K/mm3 (142-424); Red Cell Distribution Width 12.5 % (11.5-17.5); White Blood Count 7.9 K/mm3 (4.8-10.8)
[2018-06-12 16:37] LABS: Alanine Aminotransferase 24 U/L (12-78); Albumin Level 4.4 gm/dL (3.4-5.0); Albumin/Globulin Ratio 1.5 (1.1-1.8); Alkaline Phosphatase 63 U/L (46-116); Anion Gap 12.6 mEq/L (5-15); Aspartate Amino Transferase 15 U/L (15-37); Bilirubin,Total 0.4 mg/dL (0.2-1.0); Blood Urea Nitrogen 11 mg/dL (7-18); Carbon Dioxide 27 mmol/L (21.0-32.0); Chloride 103 mmol/L (98-107); Creatinine,Serum 0.54 mg/dL (0.55-1.02); Estimated Glomerular Filt Rate 134 ml/min (>60); GFR (African American) 163 ML/MIN (>60); Glucose 84 mg/dL (74-106); Potassium 3.6 mmoL/L (3.5-5.1); Sodium 139 mmol/L (136-145); Thyroid Stimulating Hormone 2.21 uIU/ml (0.358-3.740); Total Protein,Serum 7.4 gm/dL (6.4-8.2)
== END ==
PROVIDERS: Visit Provider Nurse Practitioner Women's Health
DX: N93.8 Other specified abnormal uterine and vaginal bleeding (principal); N92.1 Excessive and frequent menstruation with irregular cycle; Z79.899 Other long term (current) drug therapy
CPT/HCPCS: 36415; 80053; 84443; 85025

== ENCOUNTER → 2019-03-13 12:23 | Outpatient (CLI) | payer MEDICARE, MEDICAID, SELFPAY ==
[2019-03-13 15:14] LABS: HCG,Quantitative 1 mIU/mL
== END ==
PROVIDERS: Visit Provider Nurse Practitioner Obstetrics & Gynecology
DX: Z34.90 Encounter for supervision of normal pregnancy, unspecified, unspecified trimester (principal)
CPT/HCPCS: 36415; 84702

== ENCOUNTER → 2019-04-01 14:12 | Outpatient (CLI) | payer MEDICARE, MEDICAID, SELFPAY ==
[2019-04-01 15:53] LABS: HCG,Quantitative < 2 mIU/ml (0-5.42)
== END ==
PROVIDERS: Visit Provider Nurse Practitioner Obstetrics & Gynecology
DX: Z34.90 Encounter for supervision of normal pregnancy, unspecified, unspecified trimester (principal)
CPT/HCPCS: 36415; 84702

== ENCOUNTER → 2019-07-25 13:20 | Outpatient (CLI) | payer MEDICARE, MEDICAID, SELFPAY ==
--- NOTE | 2019-07-25 13:27 | CT_ITS ---
PROCEDURE: CT ABDOMEN PELVIS WO CON CLINICAL INDICATION: ABD PAIN ABD PAIN, bloating for 1 month COMPARISON: No exams were available for comparison TECHNIQUE: Axial images obtained with sagittal and coronal reformats. All CT scans at the facility use one or more dose reduction, viz: automated exposure control, ma/kV adjustment per patient size (including targeted exams where dose is matched to indication, i.e. head), or iterative reconstruction technique. FINDINGS: Lower thorax: No acute finding, cardiac size is normal ABDOMEN: Liver: No masses or biliary dilatation. Gallbladder: The gallbladder is normal in size but shows a somewhat heterogenic appearing bile suggesting biliary sludge or multiple small partially calcified gallstones and suggest a follow-up ultrasound right upper quadrant for additional evaluation. Pancreas: No masses or peripancreatic fluid collections. Spleen: unremarkable Adrenals: unremarkable Kidneys/ureters: unremarkable ABDOMEN & PELVIS: Stomach bowel: The stomach and small bowel appear normal. There is a moderately large amount stool and gas throughout the colon. Peritoneum: No abnormal fluid collections. No obvious inflammatory changes. No free air. Lymph nodes: No enlarged lymph nodes apparent. Vasculature: No evidence of abdominal aortic aneurysm. No retroperitoneal hemorrhage evident. Bones: No acute fracture there is moderate levo scoliotic curvature of the lower lumbar spine. PELVIS: Reproductive: unremarkable Bladder: The bladder is decompressed, there is no significant free fluid in the pelvis. Appendix: Not definitely visualized but there are no findings to suggest appendicitis. IMPRESSION: Somewhat abnormal appearing gallbladder and suggest follow-up ultrasound right upper quadrant to rule out biliary sludge and/or tiny gallstones Dictated by: Dr. Bret Delgado MD 07/25/2019 14:[address] Bret Delgado MD in [place] 07/25/2019 14:07
== END ==
PROVIDERS: PCP Nurse Practitioner; Visit Provider Nurse Practitioner
DX: R10.9 Unspecified abdominal pain (principal)
CPT/HCPCS: 74176

== ENCOUNTER → 2019-10-21 12:11 | Outpatient (CLI) | payer MEDICARE, MEDICAID, SELFPAY ==
[2019-10-21 13:02] LABS: Basophils % 0.5 % (0.1-2.0); Eosinophils # 0.1 K/mm3 (0.0-0.4); Eosinophils % 1.6 % (0.1-12.0); Hematocrit 45.5 % (37.0-47.0); Hemoglobin 15.6 g/dL (12.2-16.2); Lymphocytes # 2.8 K/mm3 (0.7-4.5); Lymphocytes % 34.6 % (10-50); Mean Corpuscular HGB Conc 34.3 g/dL (31.8-35.4); Mean Corpuscular Hemoglobin 32.3 pg (27.0-31.2); Mean Platelet Volume 8.2 fl (7.4-10.4); Monocytes # 0.3 K/mm3 (0.1-1.0); Neutrophils # 4.7 K/mm3 (1.8-7.8); Neutrophils % 59.2 % (37.0-80.0); Platelet Count 200 K/mm3 (142-424); Red Blood Count 4.84 M/mm3 (4.20-5.40); Red Cell Distribution Width 12.5 % (11.5-17.5)
[2019-10-21 13:25] LABS: Chloride 102 mmol/L (98-107); Sodium 140 mmol/L (136-145)
[2019-10-21 13:28] LABS: Alanine Aminotransferase 24 U/L (12-78); Albumin/Globulin Ratio 1.9 (1.1-1.8); Alkaline Phosphatase 46 U/L (38-126); Aspartate Amino Transferase 36 U/L (14-36); Bilirubin,Total 0.6 mg/dl (0.2-1.3); Blood Urea Nitrogen 11 mg/dl (7-17); Carbon Dioxide 28 mmol/L (22.0-30.0); Estimated Glomerular Filt Rate 146 ml/min (>60); GFR (African American) 177 ML/MIN (>60); Globulin 2.6 g/dL (1.3-3.2); Total Protein,Serum 7.6 g/dl (6.3-8.2)
[2019-10-21 13:29] LABS: Calcium 9.8 mg/dl (8.4-10.2); Glucose 102 mg/dl (74-100)
[2019-10-21 14:01] LABS: C-Reactive Protein < 0.3 mg/L (0-4)
[2019-10-22 16:47] LABS: Endomysial IgA Antibody Negative (Negative)
[2019-10-22 17:52] LABS: Deamidated Gliadin Abs, IgA 2 units (0-19); Tissue Transglutaminase IgA Ab <2 U/mL (0-3); Tissue Transglutaminase IgG Ab <2 U/mL (0-5)
[2019-10-23 09:22] LABS: Deamidated Gliadin Abs, IgG 2 units (0-19); Reticulin IgA Antibody Negative titer (Neg:<1:2.5)
== END ==
PROVIDERS: Visit Provider Nurse Practitioner
DX: R10.9 Unspecified abdominal pain (principal)
CPT/HCPCS: 36415; 80053; 83516; 85025; 86140; 86255; 86256

== ENCOUNTER 2020-06-28 17:51 | Emergency (ER) | payer MEDICARE, MEDICAID, SELFPAY ==
[2020-06-28 18:00] VITALS: BP 120/61; PULSE 78; RESP 19; TEMP 36.5; O2SAT 99; BMI 16.5
--- NOTE | 2020-06-28 18:57 | HMH.EDUTC ---
[facility] Disposition Clinical Impression: Sinusitis Qualifiers: Sinusitis location: unspecified location Chronicity: unspecified Qualified Code(s): J32.9 - Chronic sinusitis, unspecified Disposition: Home, Self-Care Condition on Discharge: Good Instructions: Sinusitis, DI for Sinusitis, Azithromycin Additional Instructions: *Monitor Temp, Over the counter Motrin or Tylenol as directed/as needed Tylenol every 4 hours and Motrin every 6 hours (as long as your family doctor has told you that you can take it) for fever or pain. and straight to ER if unable to lower temp less than 101.0 after medication given *Warm salt water gargles may help to soothe the throat *Throat Lozenges *Warm fluids like tea with honey may help to soothe the throat *Sleep elevated *Humidifier/Vaporizer Take medication as prescribed Follow up IMMEDIATELY for new or worsening symptoms or no Noticeable improvement over the next 48-72 hours. 911 for difficulty breathing or swallowing Prescriptions: Azithromycin [Z-Parth 250mg Tab] 250 mg PO DIRECTED #6 tab Transmission Status: Received by [facility] #[id number] Referrals: Vicky Wagner APRN [Primary Care Provider] - As needed Time of Disposition: 19:00 Medical Decision Making - [place] Inquiry Pt receiving controlled substance: No [place] was queried for this patient: No Vital Signs: 06/28/20 18:00 Temperature 97.7 F Temperature Source Oral Pulse Rate [Right Brachial] 78 Respiratory Rate 19 Blood Pressure [Right Arm] 120/61 Blood Pressure Mean [Right Arm] 80 Blood Pressure Source [Right Arm] Automatic Cuff Blood Pressure Position [Right Arm] Sitting 02 Sat by Pulse Oximetry 99 Oxygen Delivery Method Room Air Medical Decision Narrative: Denies [facility] HPI - General Stated complaint: Sinus Congestion Time Seen by Provider: 06/28/20 18:30 Mode of Arrival: Ambulatory Source of Information: Patient Limitations: No Limitations Description of Symptoms (Recalled from Triage Doc. by RN): PATIENT C/O NASAL CONGESTION X 3 DAYS HEENT Symptoms (Recalled from RN notes): Yes Resp Symptoms (Recalled from RN notes): No Skin Symptoms (Recalled from RN notes): No MS Symptoms (Recalled from RN notes): No Functional Status (Recalled from RN notes): WNL - History of Present Illness Provider Complaint: Patient states that she thinks she may have sinus infection States that she has been having sinus pain and pressure along with scratchy throat and feeling pressure behind her eyes States that she started having symptoms several days ago and has continued to get worse - Related Data Home Medications Medication Instructions Recorded Confirmed ibuprofen 200 mg tablet 200 mg PO Q4-6H PRN 04/10/17 04/09/19 folic acid 1 mg tablet PO 04/09/19 04/09/19 polyethylene glycol 3350 17 PO 04/09/19 04/09/19 gram/dose oral powder vit no.95-ferrous tab PO 04/09/19 04/09/19 fumarate 28 mg-folic acid 800 mcg tablet Previous Rx's Medication Instructions Recorded Azithromycin [Z-Parth 250mg Tab] 250 mg PO DIRECTED #6 tab 06/28/20 Allergies Allergy/AdvReac Type Severity Reaction Status Date / Time Iodinated Contrast Media Allergy Intermediate NA-NAUSEA/V Verified 04/09/19 09:06 [IODINATED CONTRAST MEDIA - OMITING IV DYE] levofloxacin [From LEVAQUIN] Allergy Mild Verified 04/09/19 09:06 - Worker's Comp Is this a Worker's Comp case?: No [facility] History - Hepatitis A Screen Drug use history?: No High risk sexual behaviors?: No History of sexually transmitted infection?: No Currently employed?: No Childcare worker?: No Do you have indoor plumbing?: Yes Do you have electricity?: Yes Attestation statement:: This patient has been screened for Hepatitis A risk factors. I have reviewed the patient's past medical history: Yes Medical History: Reports:: MRSA Denies:: Anxiety, Asthma, Cancer, Chronic Obstructive Pulmonary Disease (COPD), Depressio
[2020-06-28 19:25] LABS: UTC Pregnancy Test, Urine Negative (Negative)
[2020-06-28 19:28] VITALS: BP 120/61; PULSE 78; RESP 19; TEMP 36.5; O2SAT 99
== END 2020-06-28 19:30 | disposition home or self-care (01) ==
PROVIDERS: Emergency Provider Nurse Practitioner; PCP Nurse Practitioner
DX: J32.9 Chronic sinusitis, unspecified (principal); F17.210 Nicotine dependence, cigarettes, uncomplicated; E03.9 Hypothyroidism, unspecified
CPT/HCPCS: G0463; 81025; 99202

== ENCOUNTER → 2020-08-07 11:33 | Outpatient (CLI) | payer MEDICARE, MEDICAID, SELFPAY ==
[2020-08-07 12:46] LABS: Thyroid Stimulating Hormone 2.13 uIU/mL (0.465-4.68)
[2020-08-08 14:24] LABS: FSH 10.4 mIU/mL (.); LH 9.9 mIU/mL (.); Progesterone 0.2 ng/mL (.)
== END ==
PROVIDERS: Visit Provider Obstetrics & Gynecology
DX: R09.89 Other specified symptoms and signs involving the circulatory and respiratory systems (principal)
CPT/HCPCS: 36415; 83001; 83002; 84144; 84443

== ENCOUNTER → 2020-11-15 10:16 | Outpatient (CLI) | payer MEDICARE, MEDICAID, SELFPAY ==
[2020-11-15 10:51] LABS: Basophils # 0.1 K/mm3 (0-0.2); Basophils % 0.9 % (0.1-2.0); Eosinophils # 0.1 K/mm3 (0.0-0.4); Eosinophils % 1.5 % (0.1-12.0); Hematocrit 48.4 % (37.0-47.0); Hemoglobin 16.1 g/dL (12.2-16.2); Lymphocytes # 2.6 K/mm3 (0.7-4.5); Lymphocytes % 29.1 % (10-50); Mean Corpuscular HGB Conc 33.3 g/dL (31.8-35.4); Mean Corpuscular Hemoglobin 32.9 pg (27.0-31.2); Mean Corpuscular Volume 98.8 fl (81-99); Monocytes # 0.5 K/mm3 (0.1-1.0); Neutrophils # 5.7 K/mm3 (1.8-7.8); Neutrophils % 63.6 % (37.0-80.0); Platelet Count 231 K/mm3 (142-424); White Blood Count 8.9 K/mm3 (4.8-10.8)
[2020-11-15 11:44] LABS: HCG Qualitative, Serum Negative (Negative)
[2020-11-15 11:47] LABS: Alanine Aminotransferase 21 U/L (12-78); Albumin Level 4.9 g/dl (3.5-5.0); Alkaline Phosphatase 46 U/L (38-126); Anion Gap 12.5 mEq/L (5-15); Aspartate Amino Transferase 32 U/L (14-36); Bilirubin,Total 0.7 mg/dl (0.2-1.3); Blood Urea Nitrogen 10 mg/dl (7-17); Calcium 9.7 mg/dl (8.4-10.2); Carbon Dioxide 26 mmol/L (22.0-30.0); Chloride 106 mmol/L (98-107); Estimated Glomerular Filt Rate 145 ml/min (>60); GFR (African American) 175 ML/MIN (>60); Globulin 2.5 g/dL (1.3-3.2); Glucose 91 mg/dl (74-100); Potassium 3.5 mmoL/L (3.5-5.1); Sodium 141 mmol/L (136-145); Total Protein,Serum 7.4 g/dl (6.3-8.2)
== END ==
PROVIDERS: Visit Provider Obstetrics & Gynecology
DX: Z01.812 Encounter for preprocedural laboratory examination (principal); Z11.52 Encounter for screening for COVID-19; D06.9 Carcinoma in situ of cervix, unspecified
CPT/HCPCS: 36415; 80053; 84703; 85025; C9803; U0003; U0005

== ENCOUNTER 2020-11-16 08:29 | Day surgery (SDC) | payer MEDICARE, MEDICAID, SELFPAY ==
[2020-11-11 14:02] VITALS: BMI 16.2
[2020-11-16] VITALS (7 sets, daily range): BP systolic 78–128; BP diastolic 42–78; PULSE 67–107; RESP 18; TEMP 37.1; O2SAT 96–100
--- NOTE | 2020-11-16 09:18 | P.PN_ITS ---
[facility] Anesthesia Checklist - Patient Identification Patient Identification: Arm Band, Verbal (Name & ) - Structural Data Admitted From: Home Planned Operative Procedure/s: LEEP Consent for Planned Operative Procedure(s) Verified: Yes Verified Documents: Surgical Consent - NPO Status Verified Time NPO: 00:00 - Chart Verification Results Verified: HCG - Additional verifications Anesthesia Reactions: Yes (nausea, agitation) Hx Blood Transfusions: No Blood Transfusion Reaction: No - Cardiovascular Assessment Heart Sounds: S1 & S2 Pulse Rhythm: Regular - Airway Assessment C-Spine Mobility Assessed: Yes TMJ Mobility Assessed: Yes Dentition: Good Dentition - Neurological Assessment Level of Consciousness: Awake, Alert, Appropriate - Anesthesia Plan Anesthesia Risk discussed: Yes ASA Class: II Anesthesia Type: MAC [facility] History I have reviewed the patient's past medical history: Yes Medical History: Denies:: Anxiety, Asthma, Cancer, Chronic Obstructive Pulmonary Disease (COPD), Depression, Diabetes Mellitus Type 1, Diabetes Mellitus Type 2, Gastroesophageal Reflux Disease(GERD), Hyperlipidemia, Hypertension, Internal Pacemaker, Lung Disease, Kidney Stones, MRSA, Seizures *Have you ever received a pneumonia vaccine?: No *Have you received a flu vaccine this season?: No Other Medical History: Reports: Sinus Problems. Denies: Blood Transfusion Reaction, Hypothyroidism, Thyroid Disease Anesthesia experience/problems:: N/V Other Surgeries: Yes: No Previous Surgery, Cardiac Catheterization, Hernia Repair, Other. No: Pacemaker Amputation: No Fractures: No - *Social History Smoking Status: Current every day smoker Tobacco Type: cigarettes # Packs/Day (cigarettes): 1 Alcohol Intake: never Alcohol Intake Frequency:: other Substance Use Type: former substance user, marijuana, painkillers *Occupational Status:: disabled Housing: house Household Members: family *Travel in the last 8 weeks: None - Psychiatric History Pschychiatric History:: Denies:: Anxiety, Depression Family Hx:: No significant family history
--- NOTE | 2020-11-16 11:24 | P.OP_ITS ---
Date of procedure: 11/16/20 Pre-op Diagnosis:: ANAIS 3 Post-op Diagnosis:: same Procedure performed:: Loop Electrosurgical Excisional Procedure Surgeon:: Jessica Arguello MD HEAD OF PRECISION TARGETING:: Other Anesthesia: MAC Estimated blood loss (mL): 5 Operative findings:: grossly normal pelvic anatomy Operative note:: The patient was taken to the operating room and general anesthesia administered without difficulty. She was prepped & draped in lithotomy position. Coated instruments were used to prevent electrical conductivity through retractors; a coated speculum was placed in the vagina and the cervix positioned midline. The cervical cone was excised using a C-LETZ loop measuring 12mm (width) x 10mm (depth) and excised in a single piece. Sharp endocervical curettage was performed and sent as a seperate specimen. The remaining ectocervix surface was cauterized using a bovie ball as treatment for any residual dysplasia. The endo cervical margins were cauterized using the bovie ball for hemostasis, with care taken to avoid cautery to the endocervical canal. The endocervical curette was placed in the canal to ensure patency. Monsel's solution was placed over the surgical site for additional hemostasis. Once hemostasis was achieved, all instruments were removed from the vagina. All counts were correct. The patient was taken out of lithotomy position, awakened from anesthesia and taken to the PACU in stable condition. EBL: 5cc Condition: stable Disposition: PACU Specimens:: 1. Cervical cone 2. Endocervical curettings Complications:: none
== END 2020-11-16 12:45 | disposition home or self-care (01) ==
LOC: OR 08:30
PROVIDERS: PCP Nurse Practitioner; Visit Provider Obstetrics & Gynecology
DX: D06.9 Carcinoma in situ of cervix, unspecified (principal); E03.9 Hypothyroidism, unspecified; F12.11 Cannabis abuse, in remission; F11.11 Opioid abuse, in remission; Z88.1 Allergy status to other antibiotic agents; Z91.041 Radiographic dye allergy status
CPT/HCPCS: 57461; 88305; 88307; 96374; J2405

== ENCOUNTER 2022-02-22 15:58 | Emergency (ER) | payer MEDICARE, MEDICAID, SELFPAY ==
--- NOTE | 2022-02-22 16:05 | EXP.UTC ---
Discharge Plan Disposition Patient Disposition: Home, Self-Care Condition: Good Prescriptions Prescriptions: New ibuprofen [ibuprofen] 600 mg tablet 600 mg PO Q6HP PRN (Reason: Mild Pain) Qty: 30 0RF cyclobenzaprine 10 mg Tablet 10 mg PO BID PRN (Reason: Muscle Spasm) Qty: 20 0RF No Action medroxyprogesterone [Depo-Provera] 150 mg/mL suspension 150 mg IM [id number] Qty: 1 3RF Referrals Follow up/Referrals: Vicky Wagner APRN [Primary Care Provider] - See instructions Activity Restrictions/Add. Instructions Additional Instructions/Restrictions: Go home and rest. It would be best if you rested tomorrow too. No heavy lifting. No twisting. Take the oral medications as directed. The muscle relaxer (cyclobenzaprine--Flexeril) will make you drowsy, so don't drive or operate heavy machinery after taking it. Follow up with your regular doctor. GO TO THE ER FOR ANY WORSENING SYMPTOMS OR CONCERN, ESPECIALLY BOWEL OR BLADDER ISSUES, SADDLE AREA NUMBNESS, FEVER, ETC Clinical Impressions Clinical Impression: Fall, Coccyx pain Instructions Patient Instructions: DI for Low Back Pain Discharge ED Provider: Piter Abraham [facility] General Stated complaint: AO 02/17, Back/Tail bone pain Time Seen by Provider: 02/22/22 16:05 History of Present Illness Provider Complaint: She states that on 02/17 she fell and came down on her bottom and lower back. Since then she has had coccyx pain. She denies any leg weakness. She denies neck pain. Related Data Previous Rx's Medication Instructions Recorded medroxyprogesterone 150 mg/mL 150 mg IM [id number] #1 mL 05/24/21 intramuscular suspension (Depo-Provera) cyclobenzaprine 10 mg tablet 10 mg PO BID PRN Muscle Spasm #20 02/22/22 tabs ibuprofen 600 mg tablet 600 mg PO Q6HP PRN Mild Pain #30 02/22/22 tabs Allergies Allergy/AdvReac Type Severity Reaction Status Date / Time Iodinated Contrast Media Allergy Intermediate NA-NAUSEA/V Verified 02/22/22 16:33 [IODINATED CONTRAST MEDIA - OMITING IV DYE] levofloxacin [From LEVAQUIN] Allergy Mild Verified 02/22/22 16:33 [facility] Disclaimer: The information contained in this section may have been updated after the patient was seen, as this information can be updated by other users. Medical History Decreased circulation Discoloration of skin of foot Ulcer of foot Social History Smoking Status: Current every day smoker tobacco type: cigarettes packs per day: 1 second hand exposure: Yes alcohol intake: never substance use type: former substance user, marijuana and painkillers current occupational status: disabled Travel in the last 8 weeks: None household members: family housing: house caffeine: Yes ROS Obtained: Yes All systems reviewed & no additional complaints except as documented Constitutional Constitutional: Denies chills, Denies fever(s) and Denies weakness Musculoskeletal Musculoskeletal: Denies tingling Integumentary/Breasts Skin/Breast: Denies redness, Denies rash and Denies wounds Neurologic Neurologic: Denies paresthesias, Denies tingling, Denies tremor(s) and Denies weakness Physical Exam General General appearance: alert and in no apparent distress Head Head exam: atraumatic, normocephalic and normal inspection Eye Eye exam: Present normal appearance, PERRL and EOMI ENT ENT exam: Present normal exam, normal oropharynx, mucous membranes moist, TM's normal bilaterally and normal external ear exam Neck Neck exam: Present normal inspection, full ROM and trachea midline; Absent meningismus or lymphadenopathy Chest Chest inspection: Present normal inspection and symmetric chest wall rise; Absent tenderness Respiratory Respiratory exam: Present normal lung sounds bilaterally; Absent respiratory distress Cardiovascular Cardiovascular exam: Present reg
[2022-02-22 16:15] VITALS: BP 137/81; PULSE 109; RESP 20; TEMP 36.6; O2SAT 100; BMI 16.7
--- NOTE | 2022-02-22 16:17 | XR_ITS ---
PROCEDURE INFORMATION: Exam: XR Lumbosacral Spine Exam date and time: 02/22/2022 4:24 PM Age: 31 years old Clinical indication: Injury or trauma; Fall; Blunt trauma (contusions or hematomas); Patient HX: Patient fell flat on her back last Sunday. Negative test in [facility]. TECHNIQUE: Imaging protocol: Radiologic exam of the lumbosacral spine. Views: 4 or 5 views. Total images: 5 COMPARISON: CR XR COCCYX 2V 02/22/2022 4:22 PM FINDINGS: Bones/joints: No evidence of acute fracture. Vertebral heights and disc spaces are maintained. Soft tissues: Unremarkable. Gastrointestinal tract: Gaseous distention of the stomach. Large amount of stool is present throughout the colon. IMPRESSION: 1. No evidence of acute fracture. 2. Vertebral heights and disc spaces are maintained. 3. Gaseous distention of the stomach. 4. Large amount of stool is present throughout the colon.
--- NOTE | 2022-02-22 16:17 | XR_ITS ---
PROCEDURE INFORMATION: Exam: XR Sacrum and Coccyx, 2 or More Views Exam date and time: 02/22/2022 4:22 PM Age: 31 years old Clinical indication: Injury or trauma; Fall; Blunt trauma (contusions or hematomas); Patient HX: Patient fell flat on her back last Sunday. Negative test in [facility]. TECHNIQUE: Imaging protocol: XR of the sacrum and coccyx, 2 or more views. Total images: 3 COMPARISON: CT ABDOMEN PELVIS WO CON 07/25/2019 1:34 PM FINDINGS: Bones/joints: Normal. No acute fracture. Soft tissues: Normal. IMPRESSION: No acute findings.
[2022-02-22 16:28] LABS: UTC Pregnancy Test, Urine Negative (Negative)
[2022-02-22 17:30] VITALS: BP 137/81; PULSE 109; RESP 20; TEMP 36.6; O2SAT 100
== END 2022-02-22 17:30 | disposition home or self-care (01) ==
PROVIDERS: Emergency Provider Nurse Practitioner Family; PCP Nurse Practitioner
DX: M53.3 Sacrococcygeal disorders, not elsewhere classified (principal); W19.XXXA Unspecified fall, initial encounter
CPT/HCPCS: 72110; 72220; 81025; 99213; 99214; G0463

== ENCOUNTER 2022-11-13 17:20 | Emergency (ER) | payer MEDICARE, MEDICAID, SELFPAY ==
--- NOTE | 2022-11-13 17:26 | XR_ITS ---
PROCEDURE INFORMATION: Exam: XR Ribs with PA Chest Exam date and time: 11/13/2022 5:39 PM Age: 32 years old Clinical indication: Injury or trauma; Fall; Chest wall; Other: Sore; Additional info: Fall, hit chest on bench TECHNIQUE: Imaging protocol: Radiologic exam of the bilateral ribs with PA chest. Views: 4 views COMPARISON: CR CXR CHEST(2 VIEWS-NOT PORTABLE) 05/06/2016 8:50 PM FINDINGS: Lungs: Unremarkable. No consolidation. Pleural spaces: Unremarkable. No pleural effusion. No pneumothorax. Heart/Mediastinum: Unremarkable. No cardiomegaly. Bones/joints: Unremarkable. IMPRESSION: No acute findings.
--- NOTE | 2022-11-13 17:26 | XR_ITS ---
PROCEDURE INFORMATION: Exam: XR Sternum Exam date and time: 11/13/2022 5:44 PM Age: 32 years old Clinical indication: Injury or trauma; Fall; Other: Sore; Additional info: Fell, hit chest on bench TECHNIQUE: Imaging protocol: Radiologic exam of the sternum. Views: 2 or more views. COMPARISON: CR XR RIBS BI MIN 4V W CXR1V 11/13/2022 5:39 PM FINDINGS: Bones/joints: Normal. Soft tissues: Normal. IMPRESSION: No acute findings.
[2022-11-13 17:47] LABS: UTC Pregnancy Test, Urine Negative (Negative)
[2022-11-13 18:25] VITALS: BP 131/86; PULSE 88; RESP 19; TEMP 37; O2SAT 99; BMI 16.7
--- NOTE | 2022-11-13 18:37 | EXP.UTC ---
Discharge Plan Disposition Patient Disposition: Home, Self-Care Condition: Good Prescriptions Prescriptions: New ibuprofen 600 mg tablet 600 mg PO Q6HP PRN (Reason: Moderate Pain) Qty: 20 0RF Referrals Follow up/Referrals: Vicky Wagner APRN [Primary Care Provider] - See instructions Activity Restrictions/Add. Instructions Additional Instructions/Restrictions: *Ibuprofen jin 6 hours with meal as needed for pain/inflammation *Not additional anti-inflammatory like motrin, aleve, advil with the above amount of ibuprofen. You can still take Tylenol every 4 hours as needed if you need something else for pain *Ice 20 minutes every 2 hours for the first 48 hours after the initial injury followed by moist heat every 20 minutes 3-4 times a day to affected area *Keep this area active, no movement leads to more stiffness, However take it easy and avoid heavy lifting pushing or pulling *Follow up with you family doctor if no improvement for further treatment Follow up with your Family Doctor if no improvement or any worsening of symptoms Clinical Impressions Clinical Impression: Fall Qualifiers: Encounter type: initial encounter Qualified Code(s): W19.XXXA - Unspecified fall, initial encounter Sternal contusion Qualifiers: Encounter type: initial encounter Qualified Code(s): S20.219A - Contusion of unspecified front wall of thorax, initial encounter Instructions Patient Instructions: DI for Contusion, Ibuprofen Discharge ED Provider: Tiffany Augustine [facility] General Stated complaint: AO 11/12 hit chest Mode of Arrival: Ambulatory Source of Information: Patient Limitations: No Limitations Time Seen by Provider: 11/13/22 18:37 Description of Symptoms (Recalled from Triage Doc. by RN): PATIENT STATES SHE FELL YESTERDAY AND HIT HER CHEST ON A BENCH. SHE C/O PAIN TO CENTER OF CHEST WITH BREATHING AND MOVEMENT HEENT Symptoms (Recalled from RN notes): No Resp Symptoms (Recalled from RN notes): No Skin Symptoms (Recalled from RN notes): No MS Symptoms (Recalled from RN notes): Yes Functional Status (Recalled from RN notes): WNL History of Present Illness Provider Complaint: Patient states that yesterday she tripped and fell and tried to catch herself and she hit her chest on a bench States that she is not sure if she may have broken a rib or her sternum but with certain movements and deep breath it hurts States that today she looked and didnt see any bruising or swelling 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 or take a deep breath so she came in to get checked and get xray Related Data Previous Rx's Medication Instructions Recorded ibuprofen 600 mg tablet 600 mg PO Q6HP PRN Moderate Pain 11/13/22 #20 tabs Allergies Allergy/AdvReac Type Severity Reaction Status Date / Time Iodinated Contrast Media Allergy Intermediate NA-NAUSEA/V Verified 07/24/22 15:59 [IODINATED CONTRAST MEDIA - OMITING IV DYE] levofloxacin [From LEVAQUIN] Allergy Mild Verified 07/24/22 15:59 Worker's Comp Is this a Worker's Comp case?: No [facility] Disclaimer: The information contained in this section may have been updated after the patient was seen, as this information can be updated by other users. Medical History (Updated 11/13/22 @ 18:51 by Tiffany Augustine APRN) ASCUS with positive high risk HPV Cervical intraepithelial neoplasia grade 1 ANAIS III (cervical intraepithelial neoplasia grade III) with severe dysplasia Decreased circulation Discoloration of skin of foot High risk HPV infection Ulcer of foot Surgical History (Updated 07/24/22 @ 16:03 by MULU Garcia) Hx of hernia repair S/P LEEP Family History (Updated 07/24/22 @ 16:03 by MULU Garcia) Mother Cancer Other Hypertension Social History (Updated 07/24/22 @ 16:04 by MULU Garcia) Smoking Status: Current every day smoker tobacco type: cigarettes packs per day: 1 second hand exposure: Yes alcohol intake: c
[2022-11-13 18:50] VITALS: BP 131/86; PULSE 88; RESP 19; TEMP 37; O2SAT 99
== END 2022-11-13 18:55 | disposition home or self-care (01) ==
PROVIDERS: Emergency Provider Nurse Practitioner; PCP Nurse Practitioner
DX: S20.219A Contusion of unspecified front wall of thorax, initial encounter (principal); F17.210 Nicotine dependence, cigarettes, uncomplicated; W19.XXXA Unspecified fall, initial encounter
CPT/HCPCS: 71111; 71120; 81025; 99212; 99214; G0463

== ENCOUNTER 2022-12-05 15:27 | Emergency (ER) | payer MEDICARE, MEDICAID, SELFPAY ==
[2022-12-05 15:40] VITALS: BP 147/79; PULSE 111; RESP 20; TEMP 36.8; O2SAT 98; BMI 17.2
--- NOTE | 2022-12-05 15:44 | EXP.UTC ---
Discharge Plan Disposition Patient Disposition: Home, Self-Care Condition: Good Prescriptions Prescriptions: New phenazopyridine [Pyridium] 200 mg tablet 200 mg PO Q8H 2 Days Qty: 6 0RF nitrofurantoin monohyd/m-cryst [Macrobid] 100 mg Capsule 100 mg PO BID Qty: 10 0RF Rx Instructions: must administer with a meal/food No Action ibuprofen 600 mg tablet 600 mg PO Q6HP PRN (Reason: Moderate Pain) Qty: 20 0RF Referrals Follow up/Referrals: Brigid Wagner PA [Primary Care Provider] - See instructions Activity Restrictions/Add. Instructions Additional Instructions/Restrictions: Drink plenty of fluids. Take tylenol or ibuprofen for pain or fever. Take the medications as directed. Follow up with your regular doctor. GO TO THE ER FOR ANY WORSENING SYMPTOMS The pyridium will make your urine turn orange, this is an expected side effect. It will stain your clothes if it comes into contact with them. We will culture the urine. That will tell what bacteria is causing your infection and which antibiotics will treat it best. Sometimes the first antibiotic we prescribe turns out to not work against different bacteria. So, make sure you follow up within 3 days if you are not getting better. Clinical Impressions Clinical Impression: UTI (urinary tract infection) Stand Alone Forms Stand Alone Forms: Work/School Release Instructions Patient Instructions: Urinary Tract Infection, Urine Culture, DI for Urinary Tract Infection (UTI) Discharge ED Provider: Piter Abraham [facility] General Stated complaint: frequent urination Time Seen by Provider: 12/05/22 15:44 History of Present Illness Provider Complaint: She states that for the past 2 days she has had low back pain, dysuria and urinary frequency. Related Data Previous Rx's Medication Instructions Recorded ibuprofen 600 mg tablet 600 mg PO Q6HP PRN Moderate Pain 11/13/22 #20 tabs nitrofurantoin 100 mg PO BID #10 caps 12/05/22 monohydrate/macrocrystals 100 mg capsule (Macrobid) phenazopyridine 200 mg tablet 200 mg PO Q8H 2 days #6 tabs 12/05/22 (Pyridium) Allergies Allergy/AdvReac Type Severity Reaction Status Date / Time Iodinated Contrast Media Allergy Intermediate NA-NAUSEA/V Verified 07/24/22 15:59 [IODINATED CONTRAST MEDIA - OMITING IV DYE] levofloxacin [From LEVAQUIN] Allergy Mild Verified 07/24/22 15:59 [facility] Disclaimer: The information contained in this section may have been updated after the patient was seen, as this information can be updated by other users. Medical History (Updated 12/05/22 @ 16:11 by Piter Abraham APRN) ASCUS with positive high risk HPV Cervical intraepithelial neoplasia grade 1 ANAIS III (cervical intraepithelial neoplasia grade III) with severe dysplasia Decreased circulation Discoloration of skin of foot High risk HPV infection Ulcer of foot Surgical History (Updated 07/24/22 @ 16:03 by MULU Garcia) Hx of hernia repair S/P LEEP Family History (Updated 07/24/22 @ 16:03 by MULU Garcia) Mother Cancer Other Hypertension Social History (Updated 07/24/22 @ 16:04 by MULU Garcia) Smoking Status: Current every day smoker tobacco type: cigarettes packs per day: 1 second hand exposure: Yes alcohol intake: current substance use type: former substance user, marijuana and painkillers current occupational status: disabled Travel in the last 8 weeks: None household members: family housing: house caffeine: Yes ROS Obtained: Yes All systems reviewed & no additional complaints except as documented Constitutional Constitutional: Reports system reviewed and no additional complaints, except as documented, Denies chills and Denies fever(s) Eyes Eyes: Denies eye discharge ENT Ears, Nose, Mouth, and Throat: Denies dysphagia, Denies sore throat and Denies throat swelling Cardiovascular Cardiovascular: Denies chest jj
[2022-12-05 15:50] LABS: Apearance,Urine Cloudy (Clear); Color,Urine Dark Yellow (Yellow)
[2022-12-05 15:51] LABS: Bilirubin,Urine 1+ (Negative); Blood, Urine 3+ (Negative); Glucose,Urine (UA) Negative (Negative); Ketones,Urine 15 (Negative); Protein,Urine 2+ (Negative); Specific Gravity, Urine >= 1.030 (1.005-1.030); UTC Leukocyte Esterase,Urine 1+ (Negative); UTC Nitrate,Urine Positive (Negative); Urobilinogen,Urine 1 EU/dl (0.2)
[2022-12-05 15:55] VITALS: BP 147/79; PULSE 111; RESP 20; TEMP 36.8; O2SAT 98
== END 2022-12-05 16:16 | disposition home or self-care (01) ==
PROVIDERS: Emergency Provider Nurse Practitioner Family; PCP Physician Assistant
DX: N39.0 Urinary tract infection, site not specified (principal); B96.29 Other Escherichia coli [E. coli] as the cause of diseases classified elsewhere; M54.59 Other low back pain; F17.210 Nicotine dependence, cigarettes, uncomplicated
CPT/HCPCS: 81003; 87086; 96372; 99212; 99214; G0463; J0696

== ENCOUNTER → 2023-02-21 10:52 | Outpatient (POV) | payer MEDICARE, MEDICAID, SELFPAY ==
[2023-02-21 12:49] VITALS: BP 141/84; PULSE 57; RESP 18; O2SAT 97; BMI 16.3
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
== END | disposition home or self-care (01) ==
PROVIDERS: PCP Nurse Practitioner; Visit Provider Nurse Practitioner Family
DX: M54.50 Low back pain, unspecified (principal); G89.29 Other chronic pain; M54.2 Cervicalgia
CPT/HCPCS: 99202; G0463

== ENCOUNTER → 2023-03-01 10:35 | Outpatient (POV) | payer MEDICARE, MEDICAID, SELFPAY ==
--- NOTE | 2023-03-01 12:16 | A.OFFVIS_ITS ---
[facility] Pain Management SOAP Note Subjective:: Patient is a pleasant 32-year-old female who presents today for 2-week follow- up. We are currently treating the patient for low back pain, neck pain. Today she rates her pain a 9 out of 10. Patient denies any new trauma or injury from our last visit. Patient does state that she has not gotten her compounded cream yet and is unsure if she missed the phone call. Patient does state that the meloxicam seems that it may be helping some however she has not noticed huge improvements. Patient does state that she continues to have chronic pain in her neck and low back. Patient is requesting if we can do anything additionally. Her Delmer has been reviewed and is appropriate. Review of Systems: General: No recent weight changes, no fever, no sleep disturbances Respiratory: No cough, no shortness of air, no recurring pulmonary infections Cardiovascular/peripheral vascular: No chest pain, no palpitations, no edema, no shortness of breath Gastrointestinal: No new onset incontinence, normal bowel movements reported Genitourinary: No new onset incontinence Musculoskeletal: Low back pain, neck pain Psychiatric: [Normal mood/affect] Neurological: [Denies weakness in extremities], [denies balance issues] Objective:: Physical Exam: General: Alert and oriented x3, no acute distress, pleasant and cooperative Lungs: Respirations even and unlabored, symmetrical chest expansion Eyes: PERRL Musculoskeletal: Flexion and extension of lumbar [spine] somewhat guarded secondary to pain Neurological: Speech clear, no gross sensory deficit Assessment:: Low back pain, neck pain Plan:: Patient was counseled regarding her compounded cream and given the pharmacies telephone number to contact. I will increase the patient's meloxicam to 15 mg daily and send in a 2-week supply of baclofen 5 mg twice daily as needed. Patient will return to clinic in 2 weeks for reevaluation of symptoms and plan of care. I have also discussed with the patient that she still may benefit from injection therapy however at this time we will wait. Patient has been instructed to contact the clinic with any concerns before the next appointment. Dr. Nugyen has reviewed this note and agrees with this plan of care. This note was dictated using voice recognition software and make contain errors or omissions. [facility] Disclaimer: The information contained in this section may have been updated after the patient was seen, as this information can be updated by other users. Medical History (Updated 02/21/23 @ 13:14 by Samra Diez APRN) ASCUS with positive high risk HPV Cervical intraepithelial neoplasia grade 1 ANAIS III (cervical intraepithelial neoplasia grade III) with severe dysplasia Decreased circulation Discoloration of skin of foot High risk HPV infection Ulcer of foot Surgical History Hx of hernia repair S/P LEEP Family History Mother Cancer Other Hypertension Social History (Updated 02/21/23 @ 12:50 by Selma Huerta, GIGI) Smoking Status: Current every day smoker tobacco type: cigarettes packs per day: 1 second hand exposure: Yes alcohol intake: current substance use type: former substance user, marijuana and painkillers current occupational status: unemployed Travel in the last 8 weeks: None household members: family housing: house caffeine: Yes
[2023-03-01 12:28] VITALS: BP 119/74; PULSE 117; RESP 18; O2SAT 98; BMI 16.3
== END | disposition home or self-care (01) ==
PROVIDERS: PCP Nurse Practitioner; Visit Provider Nurse Practitioner Family
DX: M54.50 Low back pain, unspecified (principal); M54.2 Cervicalgia
CPT/HCPCS: 99212; G0463

== ENCOUNTER 2023-09-17 15:02 | Outpatient (CLI) | payer MEDICARE, MEDICAID, SELFPAY ==
[2023-09-17 15:25] LABS: Basophils # 0.1 K/mm3 (0-0.2); Basophils % 1.1 % (0.1-2.0); Eosinophils # 0.1 K/mm3 (0.0-0.4); Eosinophils % 0.8 % (0.1-12.0); Hematocrit 46.4 % (37.0-47.0); Hemoglobin 14.7 g/dL (12.2-16.2); Lymphocytes # 2.5 K/mm3 (0.7-4.5); Lymphocytes % 28.4 % (10-50); Mean Corpuscular HGB Conc 31.6 g/dL (31.8-35.4); Mean Corpuscular Hemoglobin 32.7 pg (27.0-31.2); Mean Corpuscular Volume 103.3 fl (81-99); Mean Platelet Volume 8.2 fl (7.4-10.4); Monocytes # 0.3 K/mm3 (0.1-1.0); Monocytes % 3.7 % (1.7-9.3); Neutrophils # 5.8 K/mm3 (1.8-7.8); Neutrophils % 66.1 % (37.0-80.0); Platelet Count 266 K/mm3 (142-424); Red Blood Count 4.49 M/mm3 (4.20-5.40); Red Cell Distribution Width 13.3 % (11.5-17.5); White Blood Count 8.7 K/mm3 (4.8-10.8)
[2023-09-17 15:50] LABS: Alanine Aminotransferase 25 U/L (12-78); Albumin Level 4.7 g/dl (3.5-5.0); Albumin/Globulin Ratio 1.8 (1.1-1.8); Alkaline Phosphatase 50 U/L (38-126); Anion Gap 9.8 mEq/L (5-15); Aspartate Amino Transferase 33 U/L (14-36); Bilirubin,Total 0.7 mg/dl (0.2-1.3); Blood Urea Nitrogen 8 mg/dl (7-17); Calcium 9.8 mg/dl (8.4-10.2); Carbon Dioxide 28 mmol/L (22.0-30.0); Chloride 103 mmol/L (98-107); Estimated Glomerular Filt Rate 115 ml/min (>60); GFR (African American) 139 ML/MIN (>60); Globulin 2.6 g/dL (1.3-3.2); Glucose 106 mg/dl (74-100); Potassium 3.8 mmoL/L (3.5-5.1); Sodium 137 mmol/L (136-145); Total Protein,Serum 7.3 g/dl (6.3-8.2)
[2023-09-17 16:06] LABS: 25-OH Vitamin D, Total 40.8 ng/mL (30-100)
[2023-09-17 16:11] LABS: T4 (Thyroxine) 9.4 ug/dl (5.53-11.0)
[2023-09-17 16:44] LABS: Vitamin B12 825 pg/mL (239-931)
[2023-09-17 17:11] LABS: HCG Qualitative, Serum Negative (Negative)
[2023-09-18 15:11] LABS: H. pylori Breath Test Negative (Negative)
[2023-09-19 11:33] LABS: Thyroid Peroxidase Antibodies <9 IU/mL (0-34); Triiodothyronine (T3) Free 3.4 pg/mL (2.0-4.4)
[2023-09-19 14:40] LABS: Thyroglobulin Level <1.0 IU/mL (0.0-0.9)
[2023-09-19 16:13] LABS: Deamidated Gliadin Abs, IgA 4 units (0-19); Deamidated Gliadin Abs, IgG 2 units (0-19); Endomysial IgA Antibody Negative (Negative); Tissue Transglutaminase IgA Ab <2 U/mL (0-3); Tissue Transglutaminase IgG Ab <2 U/mL (0-5)
[2023-09-21 09:10] LABS: Reticulin IgA Antibody Negative titer (Neg:<1:2.5)
== END 2023-09-17 23:59 | disposition home or self-care (01) ==
LOC: LAB 15:03
PROVIDERS: PCP Nurse Practitioner Family; Visit Provider Nurse Practitioner Family
DX: R11.0 Nausea (principal); R63.4 Abnormal weight loss; R19.7 Diarrhea, unspecified; E55.9 Vitamin D deficiency, unspecified; N92.6 Irregular menstruation, unspecified; K31.84 Gastroparesis
CPT/HCPCS: 36415; 80053; 82306; 82607; 83013; 83516; 84436; 84443; 84481; 84703; 85025; 86255; 86256; 86376; 86800

== ENCOUNTER 2023-09-25 09:40 | Outpatient (CLI) | payer MEDICARE, MEDICAID, SELFPAY ==
--- OUTSIDE RECORDS SUMMARY | 2023-09-25 09:42 | XMS_ITS ---
Author Organization Unknown ALLERGIES AND ADVERSE REACTIONS No information ASSESSMENT No information CHIEF COMPLAINT No information MEDICATIONS No information OBJECTIVE DATA No information PHYSICAL EXAMINATION No information TREATMENT PLAN Planned Care Start Date Provider Encounter for Check-up [phone] [facility] PROBLEMS No information RESULTS No information REVIEW OF SYSTEMS No information SUBJECTIVE DATA No information VITAL SIGNS No information
--- NOTE | 2023-09-25 09:44 | US_ITS ---
FINAL REPORT CLINICAL HISTORY: Nausea, weight loss, diarrhea COMPARISON: None FINDINGS: Sonographic images of the right upper quadrant were obtained. The pancreas is partially obscured.The liver has an unremarkable appearance. Sludge is present in the gallbladder. There is no evidence of biliary ductal dilatation.The common duct measures 2 mm. Limited images of the right kidney are unremarkable. IMPRESSION: Sludge is present in the gallbladder without evidence of gallstones or biliary ductal dilatation. Reviewed, Interpreted and Dictated by Danny Peacock MD Transcribed by Judi Valera Authenticated and [facility]
== END 2023-09-25 23:59 | disposition home or self-care (01) ==
LOC: RAD 09:40
PROVIDERS: PCP Nurse Practitioner Family; Visit Provider Nurse Practitioner Family
DX: R11.0 Nausea (principal); R63.4 Abnormal weight loss; R19.7 Diarrhea, unspecified
CPT/HCPCS: 76705

== ENCOUNTER 2023-11-13 08:10 | Outpatient (CLI) | payer MEDICARE, MEDICAID, SELFPAY ==
--- NOTE | 2023-11-13 08:20 | US_ITS ---
FINAL REPORT CLINICAL HISTORY: hepatomegaly COMPARISON: None FINDINGS: Sonographic images of the right upper quadrant were obtained. The pancreas is partially obscured.The liver has an unremarkable appearance. The patient is status post cholecystectomy. There is no evidence of biliary ductal dilatation.The common duct measures 3 mm. Limited images of the right kidney are unremarkable. There is a small amount of ascites. The portal vein is at the upper limits of normal at 13 mm. IMPRESSION: Small amount of ascites. Portal vein at the upper limits of normal. Reviewed, Interpreted and Dictated by Tristen Stevens III, MD Transcribed by Earline Stephens Authenticated and . [facility]
[2023-11-13 08:58] LABS: Microscopic, Urine URINE MICROSCOPIC (MICROSCOPIC)
[2023-11-13 09:08] LABS: Appearance,Urine CLEAR (Clear); Bilirubin,Urine Negative (Negative); Blood, Urine Negative (Negative); Color,Urine YELLOW (Yellow); Glucose,Urine (UA) Negative (Negative); Ketones,Urine Negative (Negative); Leukocyte Esterase,Urine TRACE (Negative); Nitrate,Urine POSITIVE (Negative); Protein,Urine Negative (Negative); Specific Gravity, Urine 1.015 (1.005-1.030); Urobilinogen,Urine 0.2 EU/dl (0.2)
[2023-11-13 09:23] LABS: Alanine Aminotransferase 16 U/L (12-78); Alkaline Phosphatase 27 U/L (38-126); Aspartate Amino Transferase 30 U/L (14-36); Bilirubin,Direct 0.3 mg/dl (0.0-0.4); Bilirubin,Indirect 0.3 mg/dL (0.0-0.9); Bilirubin,Total 0.6 mg/dl (0.2-1.3); Bilirubin,Unconjugated 0.3 mg/dL (0.0-1.1)
[2023-11-13 09:26] LABS: Bacteria,Urine 3+ /lpf; Squamous Epithelial Cell,Urine Occasional #/hpf (0-5); WBC,Urine Occasional #/hpf (0-3)
--- NOTE | 2023-11-13 10:14 | XR_ITS ---
FINAL REPORT TECHNIQUE: 3 views of the abdomen were performed. CLINICAL HISTORY: Acute left-sided abdominal pain, postoperative. COMPARISON: None. FINDINGS: There is a nonobstructive bowel gas pattern. Large amount of stool is identified throughout the colon. There are postoperative changes in the right upper quadrant. IMPRESSION: Nonobstructive bowel gas pattern. Large amount of stool throughout the colon. Reviewed, Interpreted and Dictated by Tristen Stevens III, MD Transcribed by Lorna Sebastian PA-C Authenticated and [facility]
[2023-11-13 14:53] LABS: HIV (1&2) Antibody Rapid NONREACTIVE (NONREACTIVE)
[2023-11-14 10:14] LABS: HBsAg Screen Negative (Negative); HCV Ab Non Reactive (Non Reactive); Hep A Ab, IGM Negative (Negative); Hep B Core Ab, IgM Negative (Negative)
== END 2023-11-13 23:59 | disposition home or self-care (01) ==
LOC: RAD 08:11
PROVIDERS: PCP Nurse Practitioner Family; Visit Provider Nurse Practitioner Family
DX: R16.0 Hepatomegaly, not elsewhere classified (principal); R30.9 Painful micturition, unspecified; R10.9 Unspecified abdominal pain; B96.20 Unspecified Escherichia coli [E. coli] as the cause of diseases classified elsewhere
CPT/HCPCS: 36415; 74019; 76705; 80074; 80076; 81001; 87086; 87088; 87186; 87389

== ENCOUNTER 2023-12-13 15:28 | Outpatient (POV) | payer MEDICARE, MEDICAID, SELFPAY ==
[2023-12-13 15:43] VITALS: BP 123/62; PULSE 98; RESP 18; O2SAT 100; BMI 15.9
--- NOTE | 2023-12-13 16:02 | A.OFFVIS_ITS ---
[facility] Disclaimer: The information contained in this section may have been updated after the patient was seen, as this information can be updated by other users. Medical History ASCUS with positive high risk HPV non 16/18 Cervical intraepithelial neoplasia grade 1 ANAIS III (cervical intraepithelial neoplasia grade III) with severe dysplasia Decreased circulation Discoloration of skin of foot High risk HPV infection Ulcer of foot Surgical History Hx of hernia repair S/P LEEP 11/16/20 Family History Mother Cancer cervical Other Hypertension Social History Smoking Status: Current every day smoker tobacco type: cigarettes packs per day: 1 second hand exposure: Yes alcohol intake: current alcohol intake frequency: holidays/special occasions only substance use type: former substance user, marijuana and painkillers current occupational status: unemployed Travel in the last 8 weeks: None household members: family housing: house caffeine: Yes PM Subjective & Objective Subjective Subjective:: Patient is a pleasant 33-year-old female who presents today for worsening pain. She rates her pain as 7 out of 10. She denies any new injuries or trauma from the last time we saw her. She does state that she ended up having to have her gallbladder removed and she has just not had a chance to get back to see us. Patient states she continues to have chronic pain throughout her low back that does radiate into her entire left extremity with numbness and tingling. Patient does state that she feels like part of it is related to where her alignment is off and she does have a collapsed left ankle that does not help things. Patient does state the pain is fairly constant and does interfere with her ability perform activities of daily living such as cooking and cleaning. At her last visit we had given her a 2-week supply of meloxicam 15 mg daily and baclofen 5 mg twice a day. She states that she does not really remember a whole lot on how well these did the felt like one of them did just seem to make her more drowsy. Patient Delmer has been reviewed and is appropriate. Review of Systems: General: No recent weight changes, no fever, no sleep disturbances Respiratory: No cough, no shortness of air, no recurring pulmonary infections Cardiovascular/peripheral vascular: No chest pain, no palpitations, no edema, no shortness of breath Gastrointestinal: No new onset incontinence, normal bowel movements reported Genitourinary: No new onset incontinence Musculoskeletal: Low back pain, left leg pain Psychiatric: [Normal mood/affect] Neurological: [Denies weakness in extremities], [denies balance issues] Pain at rest (0-10 scale): 7 Objective Objective:: Physical Exam: General: Alert and oriented x3, no acute distress, pleasant and cooperative Lungs: Respirations even and unlabored, symmetrical chest expansion Eyes: PERRL Musculoskeletal: Flexion and extension of lumbar spine somewhat guarded secondary to pain Neurological: Speech clear, no gross sensory deficit Has patient had previous pain injection?: No Conservative treatment options previously tried: Home exercise plan Length of t reatment: Longer than 12 weeks Meds Home Medications and Allergies Home Medications ?Medication ?Instructions ?Recorded ?Confirmed ?Type ondansetron 4 mg disintegrating 4 mg PO Q8H PRN nausea and 09/17/23 12/13/23 Rx tablet vomiting #30 tabs promethazine 12.5 mg tablet 12.5 mg PO Q6H PRN nausea and 09/18/23 12/13/23 Rx vomiting #30 tabs metoclopramide HCl 10 mg tablet 10 mg PO QAC #90 tabs 10/03/23 12/13/23 Rx (Reglan) omeprazole 20 mg capsule,delayed 20 mg PO DAILY #30 caps 10/10/23 12/13/23 Rx release oxycodone-acetaminophen 5 mg-325 1 tab PO TID PRN Pain 11/06/23 12/13/23 History mg tablet nitrofurantoin 100 mg PO Q12H 10 days #20 caps 11/13/23 12/13/23 Rx monohydrate/macrocrystals 100 mg capsule (Macrobid) polyethylene glycol 3350 17 17 g PO BID 30 days #1,020 grams 11/13/23 12/13/23 Rx gram/dose oral powder (Miralax) New Prescriptions to Start Prescriptions: Allergies Allergy/AdvReac Type Severity Reaction Status Date / Time Iodinated Contrast Media Allergy Intermediate NA-NAUSEA/V Verified 11/13/23 09:13 [IODINATED CONTRAST MEDIA - OMITING IV DYE] levofloxacin [From LEVAQUIN] Allergy Mild Verified 11/13/23 09:13 Assessment and Plan *Assessment and plan (1) Low back pain: Status: Acute Qualifiers: Chronicity: chronic Back pain laterality: bilateral Sciatica presence: without sciatica Qualified Code(s): M54.50 - Low back pain, unspecified; G89.29 - Other chronic pain Category: Medical Code(s): M54.50 - Low back pain, unspecified (2) Lumbar radiculopathy: Status: Acute Category: Medical Code(s): M54.16 - Radiculopathy, lumbar region Plan Patient is experiencing significant pain with numbness radiating down her entire left extremity. I did discuss with the patient in future she may benefit from a lumbar epidural or transforaminal epidural. Patient has not had any updated imaging. I will order x-ray and MRI without contrast of her lumbar spine. We will review over these findings in 1 month. Patient agrees with this plan of care. I will order the patient lidocaine patches temporarily and see if these do help. Patient was also counseled she can try heat and ice and low-dose NSAIDs due to history of stomach upset. Patient has been instructed to contact the clinic with any concerns before the next appointment. Dr. Nguyen has reviewed this note and agrees with this plan of care. This note was dictated using voice recognition software and make contain errors or omissions. All injections are used with Lidocaine or Bupivacaine and Depo Medrol.
== END 2023-12-13 23:59 | disposition home or self-care (01) ==
PROVIDERS: PCP Nurse Practitioner Family; Visit Provider Nurse Practitioner Family
DX: M54.50 Low back pain, unspecified (principal); G89.29 Other chronic pain; M54.16 Radiculopathy, lumbar region; F17.210 Nicotine dependence, cigarettes, uncomplicated; Z73.89 Other problems related to life management difficulty
CPT/HCPCS: 99212; G0463

== ENCOUNTER 2024-01-17 15:08 | Outpatient (CLI) | payer MEDICARE, MEDICAID, SELFPAY ==
--- NOTE | 2024-01-17 15:13 | MR_ITS ---
FINAL REPORT CLINICAL HISTORY: LBP. TINGLING DOWN LEFT LEG. NO INJURY OR TRAUMA FINDINGS: Multiplanar MR imaging of the lumbar spine was performed without contrast. On the sagittal T2-weighted images, no significant disc degeneration is identified. The vertebral alignment is normal. No bony mass is identified. There is no evidence of fracture. The conus has an unremarkable appearance. T11-12: Unremarkable. T12-L1: Unremarkable. L1-2: Unremarkable. L2-3: Unremarkable. L3-4: Unremarkable. L4-5: Disc bulge is present with mild bilateral neural foraminal narrowing. A small left foraminal disc protrusion is present which contributes to the left neuroforaminal narrowing. L5-S1: A mild disc bulge is present. No significant neural foraminal narrowing is seen. IMPRESSION: Small left foraminal L4-5 disc protrusion contributing to mild left neural foraminal narrowing. Authenticated and [facility]
== END 2024-01-17 23:59 | disposition home or self-care (01) ==
LOC: RAD 15:10
PROVIDERS: PCP Nurse Practitioner Family; Visit Provider Nurse Practitioner Family
DX: M54.16 Radiculopathy, lumbar region (principal); M54.50 Low back pain, unspecified
CPT/HCPCS: 72148

== ENCOUNTER 2024-02-26 15:25 | Outpatient (CLI) | payer MEDICARE, MEDICAID, SELFPAY ==
[2024-02-26 15:44] LABS: Basophils % 0.4 % (0.1-2.0); Eosinophils % 0.4 % (0.1-12.0); Hemoglobin 13.6 g/dL (12.2-16.2); Lymphocytes # 2.2 K/mm3 (0.7-4.5); Lymphocytes % 23.9 % (10-50); Mean Corpuscular HGB Conc 33.2 g/dL (31.8-35.4); Mean Corpuscular Hemoglobin 32.1 pg (27.0-31.2); Mean Corpuscular Volume 96.7 fl (81-99); Mean Platelet Volume 10.2 fl (7.4-10.4); Monocytes # 0.5 K/mm3 (0.1-1.0); Monocytes % 5.8 % (1.7-9.3); Neutrophils # 6.4 K/mm3 (1.8-7.8); Neutrophils % 69.3 % (37.0-80.0); Platelet Count 224 K/mm3 (142-424); Red Blood Count 4.24 M/mm3 (4.20-5.40); Red Cell Distribution Width 12.3 % (11.5-17.5); White Blood Count 9.3 K/mm3 (4.8-10.8)
[2024-02-26 16:06] LABS: Alanine Aminotransferase 25 U/L (12-78); Albumin Level 4.4 g/dl (3.5-5.0); Albumin/Globulin Ratio 2.3 (1.1-1.8); Alkaline Phosphatase 43 U/L (38-126); Amylase 50 U/L (30-110); Anion Gap 11.2 mEq/L (5-15); Aspartate Amino Transferase 33 U/L (14-36); Bilirubin,Total 0.2 mg/dl (0.2-1.3); Blood Urea Nitrogen 12 mg/dl (7-17); Calcium 9.3 mg/dl (8.4-10.2); Carbon Dioxide 28 mmol/L (22.0-30.0); Chloride 103 mmol/L (98-107); Estimated Glomerular Filt Rate 115 ml/min (>60); GFR (African American) 139 ML/MIN (>60); Globulin 1.9 g/dL (1.3-3.2); Glucose 96 mg/dl (74-100); Lipase 104 U/L (23-300); Potassium 4.2 mmoL/L (3.5-5.1); Sodium 138 mmol/L (136-145); Total Protein,Serum 6.3 g/dl (6.3-8.2)
[2024-02-26 16:36] LABS: Thyroid Stimulating Hormone 1.62 uIU/mL (0.465-4.68)
== END 2024-02-26 23:59 | disposition home or self-care (01) ==
LOC: LAB 15:26
PROVIDERS: PCP Nurse Practitioner Family; Visit Provider Nurse Practitioner Family
DX: R10.9 Unspecified abdominal pain (principal); R11.0 Nausea; R63.4 Abnormal weight loss
CPT/HCPCS: 36415; 80053; 82150; 83690; 84443; 85025

== ENCOUNTER 2024-03-28 14:54 | Outpatient (POV) | payer MEDICARE, MEDICAID, SELFPAY ==
[2024-03-28 15:26] VITALS: BP 127/73; PULSE 95; RESP 16; O2SAT 98; BMI 15.0
--- NOTE | 2024-03-28 15:36 | EXP.PAIN.SOA ---
[facility] Disclaimer: The information contained in this section may have been updated after the patient was seen, as this information can be updated by other users. Medical History (Updated 03/28/24 @ 15:38 by Selvin Nguyen MD) Cervical intraepithelial neoplasia grade 1 High risk HPV infection ANAIS III (cervical intraepithelial neoplasia grade III) with severe dysplasia ASCUS with positive high risk HPV Ulcer of foot Discoloration of skin of foot Decreased circulation Surgical History Hx of cholecystectomy Hx of hernia repair S/P LEEP Family History Mother Cancer cervical Other Hypertension Social History Smoking Status: Current every day smoker tobacco type: cigarettes packs per day: 1 second hand exposure: Yes alcohol intake: current alcohol intake frequency: holidays/special occasions only substance use type: former substance user, marijuana and painkillers current occupational status: other Travel in the last 8 weeks: None household members: family housing: house caffeine: Yes Have you lived/traveled outside US in past 30 days?: No Contact w/someone who lives/traveled outside US past 30 days?: No Exposure to someone with infectious disease in past 14 days?: No Do you have a fever (greater than 100.4 F or 38 C)?: No Have you tested positive for COVID-19: No Exposed to someone with COVID-19 in past 14 days?: No Do you have a sore throat?: No Do you have a cough?: No Do you have any weakness?: No Do you have any diarrhea?: No Are you experiencing any unusual bleeding?: No Do you have any muscle aches/pain?: No Do you have any abdominal pain?: No Are you experiencing loss of taste or smell?: No PM Subjective & Objective Subjective Subjective:: This patient is a pleasant 33-year-old white female who has increasing low back pain left hip pain left leg pain. We have reviewed her MRI does show did minor degenerative changes with small left foraminal L4-5 disc protrusion. She is tender over the left SI joint. She does have positive Bimal's test on left side. She has positive emesis on left side. She has positive SI joint compression test on left side. I do believe she would benefit from a diagnostic left SI joint injection under fluoroscopy. Pain at rest (0-10 scale): 8 Objective Objective:: Alert and oriented x 3 no acute distress. Patient does have antalgic gait. Motor strength of lower extremities is 5/5. There is no gross sensory deficit. She is tender over the left SI joint. She does have a positive Bimal's test. Positive Trice test. Positive SI joint compression test and a positive distraction test on the left side. Has patient had previous pain injection?: No Conservative treatment options previously tried: None Meds Home Medications and Allergies Home Medications ?Medication ?Instructions ?Recorded ?Confirmed ?Type metoclopramide HCl 10 mg tablet 10 mg PO QAC #90 tabs 10/03/23 03/28/24 Rx (Reglan) lidocaine 5 % topical patch 1 patch topical DAILY #30 ea 12/13/23 03/28/24 Rx camphor 3.1 %-methyl salicylate 10 1 patch topical DAILY 5 days #20 ea 12/17/23 03/28/24 Rx %-menthol 6 % topical patch (Salonpas) promethazine 12.5 mg tablet See Rx Instructions .Route 01/23/24 03/28/24 Rx .COMPLEX #30 tabs New Prescriptions to Start Prescriptions: Allergies Allergy/AdvReac Type Severity Reaction Status Date / Time Iodinated Contrast Media Allergy Intermediate NA-NAUSEA/V Verified 02/26/24 14:24 (IODINATED CONTRAST MEDIA - OMITING IV DYE) levofloxacin (From LEVAQUIN) Allergy Mild Verified 02/26/24 14:24 Assessment and Plan *Assessment and plan (1) Lumbar radiculopathy: Status: Acute Category: Medical Code(s): M54.16 - Radiculopathy, lumbar region (2) Degeneration of lumbar intervertebral disc: Status: Acute Qualifiers: Disc-related pain type: discogenic back pain and lower extremity pain Qualified Code(s): M51.362 - Other intervertebral disc degeneration, lumbar region with discogenic back pain and lower extremity pain Category: Medical Code(s): M51.369 - Other intervertebral disc degeneration, lumbar region without mention of lumbar back pain or lower extremity pain (3) Sacroiliac inflammation: Status: Acute Category: Medical Code(s): M46.1 - Sacroiliitis, not elsewhere classified Plan We will plan on a left SI joint injection diagnostic under fluoroscopy. Will follow-up with this patient in 2 to 3 weeks for a left diagnostic SI joint injection under fluoroscopy.
== END 2024-03-28 23:59 | disposition home or self-care (01) ==
LOC: SC.PAIN 14:56
PROVIDERS: PCP Nurse Practitioner Family; Visit Provider Anesthesiology
DX: M46.1 Sacroiliitis, not elsewhere classified (principal); M51.16 Intervertebral disc disorders with radiculopathy, lumbar region; F17.210 Nicotine dependence, cigarettes, uncomplicated
CPT/HCPCS: 99212; G0463

== ENCOUNTER 2024-04-14 10:00 | Outpatient (CLI) | payer MEDICARE, MEDICAID, SELFPAY ==
--- NOTE | 2024-04-14 10:01 | CT_ITS ---
FINAL REPORT TECHNIQUE: After the administration of intravenous contrast, axial images were obtained through the abdomen and pelvis by computed tomography. The study was performed with techniques to keep radiation dose as low as reasonably achievable, (ALARA). Individual dose reduction techniques using automated exposure control or adjustment of mA and/or kV according to the patient's size were employed. CLINICAL HISTORY: left sided abd pain, nausea, weight loss COMPARISON: None; report dated 07/25/2019 FINDINGS: Abdomen: The lung bases are clear. The liver parenchyma is homogeneous. The gallbladder is surgically absent. There is lack of intra-abdominal fat. The spleen, pancreas, adrenals and kidneys appear unremarkable. The aorta is normal in caliber. There is no free fluid or adenopathy. Pelvis: The appendix is not identified. The urinary bladder is decompressed. The uterus is anteverted. There may be a cyst or follicle in the right ovary measuring 2 cm in diameter, well-seen on image 85. There is no free fluid or adenopathy. IMPRESSION: Right ovarian cyst or follicle. Interval cholecystectomy. Stool throughout the colon. Reviewed, Interpreted and Dictated by Danny Peacock MD Transcribed by Earline Stephens Authenticated and [facility]
[2024-04-14] MEDS: IOPAMIDOL-370 (76%);100ML BOTTLE 75 ML IV (10:41)
[2024-04-14] MEDS: SODIUM CHLORIDE 0.9% 10ML SYR (RAD ONLY) 10 ML IV (10:41)
== END 2024-04-14 23:59 | disposition home or self-care (01) ==
LOC: RAD 10:01
PROVIDERS: PCP Nurse Practitioner Family; Visit Provider Nurse Practitioner Family
DX: R11.0 Nausea (principal); R63.4 Abnormal weight loss; R10.9 Unspecified abdominal pain; Z68.1 Body mass index [BMI] 19.9 or less, adult
CPT/HCPCS: 74177; Q9967

== ENCOUNTER 2024-05-05 14:05 | Outpatient (CLI) | payer MEDICARE, MEDICAID, SELFPAY ==
--- NOTE | 2024-05-05 14:00 | US_ITS ---
PROCEDURE: US TRANSVAGINAL CLINICAL INDICATION: Pelvic pain COMPARISON: CT CT ABDOMEN PELVIS WO CON from 07/25/[address] ABDOMEN PELVIS W CON from 04/14/2024 FINDINGS: Transvaginal sonographic images of the pelvis were obtained. UTERUS: 5.7 cm x 4.3cmx 2.5 cm anteverted with a combined endometrial thickness of 5.5mm. The endometrium is trilaminar. LEFT OVARY: 1.8 cmx1.6 cmx1.7cm with a volume of 2.6ml. There are several small peripheral follicles. RIGHT OVARY: 2.8 cmx 2.1 cmx2.3 cm with a volume of 6.7ml. There is a follicle measuring 1.4 cm. There are several small peripheral follicles. Both ovaries are seen and appear normal. Doppler flow to both ovaries are seen. There is no fluid in the cul-de-sac. IMPRESSION: 1. Anteverted small uterus normal in shape. The endometrium is normal and trilaminar. 2. Both ovaries are seen and appear normal. There are several small peripheral follicles on each ovary. There is a dominant follicle in the right ovary measuring 1.4 cm. 3. No fluid in the cul-de-sac. Dictated by: Ambrosio Guzman MD 05/05/2024 17:22 Ambrosio Guzman MD in [place] 05/05/2024 17:22
== END 2024-05-05 23:59 | disposition home or self-care (01) ==
LOC: RAD 14:06
PROVIDERS: PCP Nurse Practitioner Family; Visit Provider Obstetrics & Gynecology
DX: R10.2 Pelvic and perineal pain (principal); N83.202 Unspecified ovarian cyst, left side
CPT/HCPCS: 76830

== ENCOUNTER 2024-09-03 11:45 | Outpatient (CLI) | payer MEDICARE, MEDICAID, SELFPAY ==
--- OUTSIDE RECORDS SUMMARY | 2024-09-03 11:48 | XMS_ITS | Referral Summary ---
Author Organization [employer] ([place], [place], [place], [place]) Address [address] [place] [address] Care Team Providers Care Taping Supervisor Name Role Phone Unavailable Primary Care Provider Unavailabl e Social History Tobacco Use Types Packs/Day Years Used Date Smoking Tobacco: Never Assessed Comments Unknown Sex and Gender Information Value Date Recorded Sex Assigned at Female 08/02/2021 5:50 PM CDT Legal Sex Female 5:50 PM CDT Gender Identity Female 08/02/2021 5:50 PM CDT Sexual Orientation Not on file Plan of Treatment Not on file
--- OUTSIDE RECORDS SUMMARY | 2024-09-03 11:48 | XMS_ITS | Clinical Summary ---
Author Organization Healthcare Address [address] [place] [address] Care Team Providers Care Archivist [employer] Name Role Phone Steven Lawrence MD Primary Care Provider + [phone] Social History Tobacco Use Types Packs/Day Years Used Date Smoking Tobacco: Every Day Alcohol Use Standard Drinks/Week Comments No 0 (1 standard drink = 0.6 oz pur e alcohol) Comments Unknown Sex and Gender Information Value Date Recorded Sex Assigned at Not on file Legal Sex Female 6:10 PM EDT Gender Identity Not on file Sexual Orientation Not on file Last Filed Vital Signs Vital Sign Reading Time Taken Comments Blood Pressure 118/71 09/20/2017 2:57 PM EDT Pulse 107 09/20/2017 2:57 PM EDT Temperature 36.4 C (97.6 F) 09/20/2017 2:57 PM EDT Respiratory Rate 18 09/20/2017 2:57 PM EDT Oxygen Saturation - - Inhaled Oxygen Concentration - - Weight 59.5 kg (131 lb 2.8 oz) 09/20/2017 2:57 P M EDT Height 180.3 cm (5' 11 ) 09/20/2017 2:57 PM EDT Body Mass Index 18.3 09/20/2017 2:57 PM EDT Plan of Treatment Not on file Care Teams Archivist [employer]profit Foundation Relationship Specialty Start Date End Date Steven Lawrence MD [address] [facility] [place] [address] PCP - General 06/18/20
--- OUTSIDE RECORDS SUMMARY | 2024-09-03 11:48 | XMS_ITS | Clinical Summary ---
Author Organization [employer] ([place], [place], [place], [place]) Address [address] [place] [address] Care Team Providers Care [employer] Name Role Phone Unavailable Primary Care Provider [...]
[2024-09-03 11:58] VITALS: BMI 16.5
[2024-09-03 12:29] LABS: Hematocrit 44.1 % (37.0-47.0); Hemoglobin 14.9 g/dL (12.2-16.2); Immature Granulocytes % 0.3 %; Mean Corpuscular HGB Conc 33.8 g/dL (31.8-35.4); Mean Corpuscular Hemoglobin 33.3 pg (27.0-31.2); Mean Corpuscular Volume 98.7 fl (81-99); Nucleated Red Blood Cells % 0 %; Platelet Count 226 K/mm3 (142-424); Red Blood Count 4.47 M/mm3 (4.20-5.40); Red Cell Distribution Width-SD 42.8 fL; White Blood Count 11.2 K/mm3 (4.8-10.8)
[2024-09-03 12:33] LABS: Anion Gap 10.9 mEq/L (5-15); Blood Urea Nitrogen 14 mg/dl (7-17); Calcium 9.6 mg/dl (8.4-10.2); Carbon Dioxide 27 mmol/L (22.0-30.0); Chloride 103 mmol/L (98-107); Creatinine Clearance Estimated 112 mL/min (50-200); Creatinine,Serum 0.60 mg/dl (0.52-1.04); Estimated Glomerular Filt Rate 114 ml/min (>60); GFR (African American) 138 ML/MIN (>60); Glucose 108 mg/dl (74-100); Potassium 3.9 mmoL/L (3.5-5.1); Sodium 137 mmol/L (136-145)
[2024-09-03 12:52] LABS: HCG Qualitative, Serum Negative (Negative)
== END 2024-09-03 23:59 | disposition home or self-care (01) ==
LOC: PREOP 11:46
PROVIDERS: PCP Nurse Practitioner Family; Visit Provider Obstetrics & Gynecology
DX: Z01.812 Encounter for preprocedural laboratory examination (principal)
CPT/HCPCS: 80048; 84703; 85025

== ENCOUNTER 2024-09-08 07:45 | Day surgery (SDC) | payer MEDICARE, MEDICAID, SELFPAY ==
[2024-09-03 13:22] VITALS: BMI 16.5
[2024-09-08] VITALS (10 sets, daily range): BP systolic 101–139; BP diastolic 59–89; PULSE 78–92; RESP 17–22; TEMP 36.8–37.5; O2SAT 94–100; BMI 22.3
[2024-09-08] MEDS: LACTATED RINGERS 1000ML 1,000 ML 25 ML IV (08:17)
[2024-09-08] MEDS: ACETAMINOPHEN 500MG TAB 1000 MG PO (08:18)
--- NOTE | 2024-09-08 08:29 | P.PNANES_ITS ---
[facility] Disclaimer: The information contained in this section may have been updated after the patient was seen, as this information can be updated by other users. Medical History Dysplasia of cervix, high grade ANAIS 2 ASCUS with positive high risk HPV cervical Abnormal Pap smear of cervix Tenderness of female pelvic organs Cervical intraepithelial neoplasia grade 1 High risk HPV infection ANAIS III (cervical intraepithelial neoplasia grade III) with severe dysplasia ASCUS with positive high risk HPV Ulcer of foot Discoloration of skin of foot Decreased circulation Surgical History S/P conization of cervix History of colposcopy S/P LEEP Hx of cholecystectomy Hx of hernia repair Family History Mother Cancer Other Hypertension Social History Smoking Status: Current every day smoker tobacco type: cigarettes packs per day: 1 second hand exposure: Yes alcohol intake: never substance use type: former substance user, marijuana and painkillers current occupational status: unemployed Travel in the last 8 weeks?: None household members: family housing: house caffeine: Yes Have you lived/traveled outside US in past 30 days?: No Contact w/someone who lives/traveled outside US past 30 days?: No Exposure to someone with infectious disease in past 14 days?: No Do you have a fever (greater than 100.4 F or 38 C)?: No Have you tested positive for COVID-19?: No Exposed to someone with COVID-19 in past 14 days?: No Do you have a sore throat?: No Do you have a cough?: No Do you have any weakness?: No Are you experiencing any nausea/vomitting?: No Do you have any diarrhea?: No Are you experiencing any unusual bleeding?: No Do you have any muscle aches/pain?: No Do you have any abdominal pain?: No Are you experiencing loss of taste or smell?: No [facility] Anesthesia Checklist Patient Identification Patient Identification: Arm Band and Verbal (Name & ) Structural Data Admitted From: Home Planned Operative Procedure/s: LEEP Consent for Planned Operative Procedure(s) Verified: Yes Verified Documents: Surgical Consent and History and Physical NPO Status Verified Time NPO: 00:00 Additional verifications Patient : No Anesthesia Reactions: Yes (nausea, agitation) Hx Blood Transfusions: No Blood Transfusion Reaction: No Airway Assessment Mallampati Score:: Class II Dentition: Good Dentition Neurological Assessment Level of Consciousness: Awake, Alert and Appropriate Hx Seizures: No Numbness or tingling in extremities: No Anesthesia Plan Anesthesia Risk discussed: Yes Anesthesia Plan: Verified ASA Class: II Anesthesia Type: General
--- NOTE | 2024-09-08 09:41 | P.OP_ITS ---
Date of procedure: 09/08/24 Pre-op Diagnosis:: 1. ANAIS II of cervix 2. ASCUS HPV + pap smear 3. History of cervical dysplasia 4. History of LEEP and cold knife conization Post-op Diagnosis:: 1. ANAIS II of cervix 2. ASCUS HPV + pap smear 3. History of cervical dysplasia 4. History of LEEP and cold knife conization Procedure performed:: Loop electrosurgical excision procedure Surgeon:: Aissatou Sanchez DO Director Of State(s):: N/a WHITE HAT HACKER:: Piter Gray Anesthesia: GETA Estimated blood loss (mL): 0 Clinical Note:: Ms Joanie Jacobson is a 34 yo P1001 who presents to [facility] for scheduled procedure. Pap smear 05/19/24 was ASCUS, HPV + (positive HPV 18/45). History of abnormal pap smear in 2020. Pap smear 08/17/20 was ASCUS, HPV +. She underwent LEEP. Pathology demonstrated HGSIL. She subsequently underwent cold knife conization. Pathology from [facility] demonstrated ANAIS 1. Pap smear 03/2021, 07/2021 and 07/2022 was negative. Colposcopy with biopsies 07/16/24 demonstrated ANAIS 2 at 12 o'clock and ANAIS 1 at 7 o'clock. Operative findings:: 1. Cervix was flush with vaginal mucosa. No gross abnormalities seen. Operative note:: Risks, benefits and alternatives were discussed with the patient. Risks include but are not limited to bleeding, infection, and VTE. Patient voiced understanding and agreed to proceed. She was wheeled back to the operating room and placed under general anesthesia without difficulty. She was placed in dorsal lithotomy position and prepped and draped in the normal sterile fashion. Straight catheter was used to drain the bladder. An insulated speculum was inserted into the vagina. Insulated single tooth tenaculum was placed on anterior lip of the cervix. Small size loop was selected to excise portion of posterior cervix. Second pass with small loop was used to excise anterior portion of ectocervix. Small loop was used to obtain a top hat for excision of endocervix. The bed of excised cervical tissue was cauterized with ball Bovi cautery and Surgicel snow was applied to cauterized base. Hemostasis was noted. All instruments were removed from the vagina. Tenaculum site was noted to be hemostatic. Patient was awaken from anesthesia without difficulty. She was transported to recovery room in stable condition. Patient will be discharged home when awake and ambulating. She was also given instructions to follow-up in the office in 2 weeks. Condition: stable Disposition: same day Specimens:: 1. Portion of posterior ectocervix 2. Portion of anterior ectocervix 3. Endocervix Complications:: None
[2024-09-08] MEDS: MORPHINE 2MG/ML SYRINGE 2 MG IV (09:57)
--- NOTE | 2024-09-08 10:19 | SUR.PHASEI ---
1006- Patient VSS. Patient states that pain has gotten better after pain medication given. Ambulated to bathroom with assistance. Done well. 1007- Transported to post op via stretcher. 1008- In post op, report given to Marci Peres RN.
--- NOTE | 2024-09-08 10:34 | P.PNANES_ITS ---
[facility] Anesthesia Record Part I Anesthesia Record I Intake, IV Amount: 750 Hydration: Adequate Estimated blood loss (mL): 5 Urine output (mL): 0 Blood Products used (#): none Blood Pressure: 135/89 SaO2: 100 Pulse Rate: 92 Airway Patency: Patent Respiratory Rate: 22 Temperature: 98.3 F Patient is:: Drowsy and Stable Stable to PACU at:: 09:36
--- NOTE | 2024-09-08 11:29 | P.PNANES_ITS ---
[facility] Anesthesia Record Part II Anesthesia Record Part II Discharge Time: 10:06 Destination: Surgical Day Care (OP Surgery) PACU nurse assessment reviewed?: Yes Patient Condition:: Good Anesthesia Complications:: None Swallowing reflex intact?: Yes Airway Patency: Patent Cyanosis?: No Blood Pressure: 128/80 SaO2: 99 Respiratory Rate: 17 Pulse Rate: 84 Temperature: 98.3 F Mental Status: Alert & Oriented Pain level:: 4 Nausea and/or vomitting:: None Intake, IV Amount: 0 Hydration: Adequate
== END 2024-09-08 10:46 | disposition home or self-care (01) ==
PROVIDERS: PCP Nurse Practitioner Family; Visit Provider Obstetrics & Gynecology
PROC: 0UBC7ZZ Excision of Cervix, Via Natural or Artificial Opening (ICD-10-PCS; CPT 57522; principal; 2024-09-08 09:15)
DX: N87.1 Moderate cervical dysplasia (principal); A63.0 Anogenital (venereal) warts; F17.210 Nicotine dependence, cigarettes, uncomplicated; Z88.1 Allergy status to other antibiotic agents
CPT/HCPCS: 57522; J1100; J1885; J2003; J2250; J2270; J2405; J2704; J3010; J7120

== ENCOUNTER 2024-12-19 10:00 | Outpatient (CLI) | payer MEDICARE, MEDICAID, SELFPAY ==
[2024-12-19 17:56] LABS: Benzodiazepines Screen,Urine Negative ng/ml (<200)
[2024-12-19 17:58] LABS: Barbiturates Screen,Urine Negative ng/ml (<200)
[2024-12-19 18:00] LABS: Methadone Screen,Urine Negative ng/ml (<300); Opiate Screen,Urine Negative ng/ml (<300)
[2024-12-19 18:01] LABS: Phencyclidine Screen,Urine Negative ng/ml (<25)
[2024-12-19 18:05] LABS: Amphetamine/Metha Screen,Urine Negative ng/ml (<1000)
== END 2024-12-19 23:59 | disposition home or self-care (01) ==
LOC: LAB.DROPOF 12-20 10:00
PROVIDERS: PCP Nurse Practitioner Family; Visit Provider Obstetrics & Gynecology
DX: Z01.812 Encounter for preprocedural laboratory examination (principal); D06.9 Carcinoma in situ of cervix, unspecified; F12.10 Cannabis abuse, uncomplicated; R87.810 Cervical high risk human papillomavirus (HPV) DNA test positive; Z98.890 Other specified postprocedural states
CPT/HCPCS: 80307

== ENCOUNTER 2024-12-19 11:56 | Outpatient (CLI) | payer MEDICARE, MEDICAID, SELFPAY ==
[2024-10-29 08:36] VITALS: BMI 16.2
[2024-11-04 08:38] VITALS: BMI 16.2
[2024-12-19 08:24] VITALS: BMI 16.2
[2024-12-19 12:32] LABS: Alanine Aminotransferase 20 U/L (12-78); Albumin Level 4.4 g/dl (3.5-5.0); Albumin/Globulin Ratio 1.8 (1.1-1.8); Alkaline Phosphatase 47 U/L (38-126); Anion Gap 10.8 mEq/L (5-15); Aspartate Amino Transferase 30 U/L (14-36); Bilirubin,Total 0.3 mg/dl (0.2-1.3); Blood Urea Nitrogen 8 mg/dl (7-17); Calcium 9.2 mg/dl (8.4-10.2); Carbon Dioxide 26 mmol/L (22.0-30.0); Chloride 103 mmol/L (98-107); Creatinine Clearance Estimated 110 mL/min (50-200); Creatinine,Serum 0.60 mg/dl (0.52-1.04); Estimated Glomerular Filt Rate 114 ml/min (>60); GFR (African American) 138 ML/MIN (>60); Globulin 2.4 g/dL (1.3-3.2); Glucose 86 mg/dl (74-100); Potassium 3.8 mmoL/L (3.5-5.1); Sodium 136 mmol/L (136-145); Total Protein,Serum 6.8 g/dl (6.3-8.2)
[2024-12-19 12:36] LABS: Hematocrit 40.7 % (37.0-47.0); Hemoglobin 13.5 g/dL (12.2-16.2); Immature Granulocytes % 0.4 %; Mean Corpuscular HGB Conc 33.2 g/dL (31.8-35.4); Mean Corpuscular Hemoglobin 32.0 pg (27.0-31.2); Mean Corpuscular Volume 96.4 fl (81-99); Nucleated Red Blood Cells % 0 %; Platelet Count 249 K/mm3 (142-424); Red Blood Count 4.22 M/mm3 (4.20-5.40); Red Cell Distribution Width-SD 42.5 fL; White Blood Count 10.5 K/mm3 (4.8-10.8)
[2024-12-19 13:22] LABS: HCG Qualitative, Serum Negative (Negative)
== END 2024-12-19 23:59 | disposition home or self-care (01) ==
LOC: PREOP 11:57
PROVIDERS: PCP Nurse Practitioner Family; Visit Provider Obstetrics & Gynecology
DX: Z01.818 Encounter for other preprocedural examination (principal); Z01.812 Encounter for preprocedural laboratory examination
CPT/HCPCS: 80053; 84703; 85025

== ENCOUNTER 2024-12-22 07:49 | Day surgery (SDC) | payer MEDICARE, MEDICAID, SELFPAY ==
[2024-12-19 13:13] VITALS: BMI 16.2
[2024-12-22 08:06] VITALS: BP 101/59; PULSE 78; RESP 18; TEMP 36.9; O2SAT 99
[2024-12-22] MEDS: ACETAMINOPHEN 500MG TAB 1000 MG PO (08:18)
[2024-12-22] MEDS: LACTATED RINGERS 1000ML 1,000 ML 25 ML IV (08:19)
--- NOTE | 2024-12-22 08:37 | EXP.ANES.CKL ---
[facility] Disclaimer: The information contained in this section may have been updated after the patient was seen, as this information can be updated by other users. Medical History Encounter for preoperative assessment ANAIS III (cervical intraepithelial neoplasia III) Dysplasia of cervix, high grade ANAIS 2 ASCUS with positive high risk HPV cervical Abnormal Pap smear of cervix Tenderness of female pelvic organs Cervical intraepithelial neoplasia grade 1 High risk HPV infection ANAIS III (cervical intraepithelial neoplasia grade III) with severe dysplasia ASCUS with positive high risk HPV non 16/18 Ulcer of foot Discoloration of skin of foot Decreased circulation Surgical History S/P conization of cervix History of colposcopy S/P LEEP Hx of cholecystectomy Hx of hernia repair Family History Mother Cancer cervical Other Hypertension Social History (Updated 12/22/24 @ 08:07 by Pema Palafox RN) Smoking Status: Current every day smoker tobacco type: cigarettes packs per day: 1 second hand exposure: Yes alcohol intake: never substance use type: former substance user, marijuana and painkillers current occupational status: unemployed Travel in the last 8 weeks?: None household members: family housing: house caffeine: Yes Have you lived/traveled outside US in past 30 days?: No Contact w/someone who lives/traveled outside US past 30 days?: No Exposure to someone with infectious disease in past 14 days?: No Do you have a fever (greater than 100.4 F or 38 C)?: No Have you tested positive for COVID-19?: No Exposed to someone with COVID-19 in past 14 days?: No Do you have a sore throat?: No Do you have a cough?: No Do you have any weakness?: No Are you experiencing any nausea/vomitting?: No Do you have any diarrhea?: No Are you experiencing any unusual bleeding?: No Do you have any muscle aches/pain?: No Do you have any abdominal pain?: No Are you experiencing loss of taste or smell?: No [facility] Anesthesia Checklist Patient Identification Patient Identification: Arm Band Structural Data Admitted From: Home Planned Operative Procedure/s: Cone Biopsy Consent for Planned Operative Procedure(s) Verified: Yes Verified Documents: Surgical Consent and History and Physical NPO Status Verified Time NPO: 00:00 Additional verifications Anesthesia Reactions: No Hx Blood Transfusions: No Blood Transfusion Reaction: No Airway Assessment Mallampati Score:: Class II C-Spine Mobility Assessed: Yes TMJ Mobility Assessed: Yes Dentition: Good Dentition (Patient has retainer/implant that she does not want to removed. Risks of dental damage explained and pt verbalized understanding) Neurological Assessment Level of Consciousness: Awake, Alert and Appropriate Anesthesia Plan Anesthesia Risk discussed: Yes Anesthesia Plan: Verified ASA Class: II Anesthesia Type: MAC
[2024-12-22] MEDS: LIDOCAINE 1% W/EPI 1:100,000 20ML VIAL 20 ML (09:13)
[2024-12-22 09:35] VITALS: BP 111/29; PULSE 78; RESP 18; TEMP 36.4; O2SAT 91
[2024-12-22 09:50] VITALS: BP 134/78; PULSE 78; RESP 18; O2SAT 100
--- NOTE | 2024-12-22 09:58 | EXP.OP.NOTE ---
Date of procedure: 12/22/24 Pre-op Diagnosis:: 1. ANAIS III, HGSIL Post-op Diagnosis:: 1. ANAIS III, HGSIL Procedure performed:: 1. Cold Knife Conization Surgeon:: Aissatou Sanchez DO Imaging Account Manager(s):: N/a EXTENSION DIVISION DIRECTOR:: Piter Gray Anesthesia: MAC Estimated blood loss (mL): 0 Clinical Note:: Ms Joanie Jacobson presents to [facility] For scheduled procedure. She underwent LEEP procedure on 09/08/24. Pathology demonstrated HGSIL/ANAIS III. Anterior ectocervix with negative margins. Posterior ectocervix with HGSIL to endocervix margin. In review: Pap smear 05/19/24 was ASCUS, HPV + (positive HPV 18/45). History of abnormal pap smear in 2020. Pap smear 08/17/20 was ASCUS, HPV +. She underwent LEEP. Pathology demonstrated HGSIL. She subsequently underwent cold knife conization. Pathology from [facility] demonstrated ANAIS 1. Pap smear 03/2021, 07/2021 and 07/2022 was negative. Colposcopy with biopsies 07/16/24 demonstrated ANAIS 2 at 12 o'clock and ANAIS 1 at 7 o'clock. Operative findings:: 1. Grossly normal appearing cervix Operative note:: Risks, benefits and alternatives were discussed with the patient. Risks include but are not limited to bleeding, infection, and VTE. Patient voiced understanding and agreed to proceed. She was wheeled back to the operating room and placed under MAC without difficulty. She was placed in dorsal lithotomy position and prepped and draped in the normal sterile fashion. Straight catheter was used to drain the bladder. A weighted Auvard as inserted into the vagina. A single tooth tenaculum was used to grasp anterior lip of the cervix. Cervix was injection with 1 % lidocaine with epinephrine. Angle sutures of 2-0 Vicryl were placed around 3 o'clock and 9 o'clock positions of the cervix. Cone biopsy was excised with an 11 blade scalpel. After excision of biopsy specimen, the biopsy base was cauterized with Bovi cautery to assure hemostasis and then uterine sound was inserted through cerivcal os to ensure patency. Hemostasis was noted. Surgicel snow was placed over cauterized biopsy base. All instruments were removed from the vagina. Tenaculum site was hemostatic. Patient was awaken from anesthesia without difficulty. She was transported to recovery room in stable condition. Patient will be discharged home when awake and ambulating. She was also given instructions to follow-up in the office in 2 weeks. Condition: stable Disposition: same day Specimens:: 1. Cervical cone Complications:: None
[2024-12-22 10:05] VITALS: BP 122/73; PULSE 78; RESP 16; O2SAT 100
[2024-12-22 13:06] VITALS: TEMP 38
== END 2024-12-22 10:05 | disposition home or self-care (01) ==
PROVIDERS: PCP Nurse Practitioner Family; Visit Provider Obstetrics & Gynecology
PROC: 0UBC7ZZ Excision of Cervix, Via Natural or Artificial Opening (ICD-10-PCS; CPT 57520; principal; 2024-12-22 09:15)
DX: N87.0 Mild cervical dysplasia (principal); F17.210 Nicotine dependence, cigarettes, uncomplicated; Z90.49 Acquired absence of other specified parts of digestive tract; Z98.890 Other specified postprocedural states
CPT/HCPCS: 57520; 88307; J1100; J2003; J2004; J2250; J2405; J2704; J3010; J7120